=== PATIENT | male | born 1970 | race Caucasian/White ===

== ENCOUNTER 2017-01-02 12:34 | Emergency (ER) | payer MEDICAID ==
--- NOTE | 2017-01-02 13:13 | Emergency Department Record ---
History of Present Illness - General Chief Complaint: Laceration(s) Stated Complaint: LACERATION ON RIGHT LEG Time Seen by Provider: 01/02/17 13:02 Source: Patient Mode of Arrival: Ambulatory Limitations: No limitations - History of Present Illness Initial Commments: pt scratched his leg 8 days ago. he has been putting abx ointment on it and soaking it but he is concerned beause there is some redness. he states it does look better then yesterday. Onset/Timin -: Days(s) Extremity Location: Right: Lower leg Place: Work Context: Accidental Associated Symptoms: None Treatments Prior to Arrival: Other Treatment Prior to Arrival Comment:: Cleaning - [place] Com[place] Scale Eye Response: (4) Open spontaneously Motor Response: (6) Obeys commands - Related Data Home Medications Medication Instructions Recorded Confirmed Last Taken Hydrocodone/Acetaminophen 1 tab PO TID 01/04/14 01/02/17 01/02/17 [Hydrocodon-Acetaminoph 7.5-325] Bupropion HCl [Bupropion HCl Sr] 450 mg PO DAILY 09/05/14 01/02/17 01/02/17 Multivitamin [Multi-Vitamin Daily] 1 tab PO DAILY 01/30/15 01/02/17 01/02/17 Alprazolam [Xanax] 1 mg PO TID PRN 07/05/15 01/02/17 01/02/17 Previous Rx's Medication Instructions Recorded Albuterol Sulfate [Proair Hfa] 1 - 2 puff IH .EVERY 4-6 HOURS PRN 03/07/15 #1 inhaler Cephalexin [Keflex] 250 mg PO QID #30 capsule 01/02/17 Allergies Allergy/AdvReac Type Severity Reaction Status Date / Time iodine [IODINE] Allergy Intermediate PT UNSURE Verified 01/02/17 12:48 OF REACTION Travel Screening - Travel/Exposure Within Last 30 Days Have you traveled within the last 30 days?: No - Travel/Exposure Within Last Year Have you traveled outside the [place] in the last year?: No - Additonal Travel Details Have you been exposed to anyone with a communicable illness?: No - Travel Symptoms Symptom Screening: None Review of Systems Reviewed: No additional complaints except as noted below Constitutional: Reports: As per HPI. Denies: Chills, Fever, Malaise, Night sweats, Weakness, Weight change Eyes: Reports: As per HPI. Denies: Eye discharge, Eye pain, Photophobia, Vision change ENT: Reports: As per HPI. Denies: Congestion, Dental pain, Ear pain, Epistaxis , Hearing loss, Throat pain Respiratory: Reports: As per HPI. Denies: Cough, Dyspnea, Hemoptysis, Stridor, Wheezes Cardiovascular: Reports: As per HPI. Denies: Arrhythmia, Chest pain, Dyspnea on exertion, Edema, Murmurs, Orthopnea, Palpitations, Paroxysmal nocturnal dyspnea, Rheumatic Fever, Syncope Endocrine: Reports: As per HPI. Denies: Fatigue, Heat or cold intolerance, Polydipsia, Polyuria Gastrointestinal: Reports: As per HPI. Denies: Abdominal pain, Constipation, Diarrhea, Hematemesis, Hematochezia, Melena, Nausea, Vomiting Genitourinary: Reports: As per HPI. Denies: Dysuria, Frequency, Hematuria, Incontinence, Retention, Testicular pain, Testicular mass, Urgency Musculoskeletal: Reports: As per HPI. Denies: Arthralgia, Back pain, Gout, Joint swelling, Myalgia, Neck pain Skin: Reports: As per HPI. Denies: Bruising, Change in color, Change in hair/ nails, Lesions, Pruritus, Rash Neurological: Reports: As per HPI. Denies: Abnormal gait, Confusion, Headache, Numbness, Paresthesias, Seizure, Tingling, Tremors, Vertigo, Weakness Psychiatric: Reports: As per HPI. Denies: Anxiety, Auditory hallucinations, Depression, Homicidal thoughts, Suicidal thoughts, Visual hallucinations Hematological/Lymphatic: Reports: As per HPI. Denies: Anemia, Blood Clots, Easy bleeding, Easy bruising, Swollen glands Past Medical History - SOCIAL HISTORY Smoking Status: Current every day smoker Alcohol Use: None Drug Use: None - RESPIRATORY Hx Respiratory Disorders: No - CARDIOVASCULAR Hx Cardio Disorders: No - NEURO Hx Neuro Disorders: No - GI Hx GI Disorders: No - Hx Genitourinary Disorders: No - ENDOCRINE Hx Endocrine Disorders: No - MUSCULOSKELETAL Hx Musculoskeletal Disorders: Yes Hx Back Injury: Yes - PSYCH Hx Psych Problems: Yes Hx Depression: Yes - HEMATOLOGY/ONCOLOGY Hx Hematology/Oncology Disorders: No Family Medical History Any Significant Family History?: No Physical Exam - General General Appearance: Alert, Oriented x3, Cooperative, No acute distress - Head Head exam: Normal inspection - Eye Eye exam: Normal appearance, PERRL, EOMI Pupils: Normal accommodation - ENT ENT exam: Normal exam, Mucous membranes moist, Normal external ear exam, Normal orophraynx Ear exam: Normal external inspection. negative: External canal tenderness Nasal Exam: Normal inspection. negative: Discharge, Sinus tenderness Mouth exam: Normal external inspection, Tongue normal Teeth exam: Normal inspection. negative: Dental caries Throat exam: Normal inspection. negative: Tonsillar erythema, Tonsillar exudate - Neck Neck exam: Normal inspection, Full ROM. negative: Tenderness - Respiratory Respiratory exam: Normal lung sounds bilaterally. negative: Respiratory distress - Cardiovascular Cardiovascular Exam: Regular rate, Normal rhythm, Normal heart sounds - GI/Abdominal GI/Abdominal exam: Soft, Normal bowel sounds. negative: Tenderness - Rectal Rectal exam: Deferred - exam: Deferred - Extremities Extremities exam: Normal inspection, Full ROM, Normal capillary refill, Tenderness Image of Full Body: 1 - superficial laceration w slight erythema - Back Back exam: Reports: Normal inspection, Full ROM. Denies: Muscle spasm, Rash noted, Tenderness - Neurological Neurological exam: Alert, CN II-XII intact, Normal gait, Oriented X3 - Psychiatric Psychiatric exam: Normal affect, Normal mood - Skin Skin exam: Dry, Intact, Normal color, Warm Course Vital Signs 01/02/17 12:50 Temperature 98 F Pulse Rate 74 Respiratory 20 Rate Blood Pressure 133/85 Pulse Ox 99 - Reevaluation(s) Reevaluation #1: 01/02/17 13:13 lac does not look infected at this pt though pt is concerned so i will write a rx in case it gets worse. Disposition Disposition: Discharge Clinical Impression: Laceration Disposition: Home, Self-Care Condition: (1) Good Instructions: Laceration (ED) Additional Instructions: follow up with family doctor. return sooner if worse. elevate leg. continue antibiotic ointment. start prescription only if leg is worse with more redness. Prescriptions: Cephalexin [Keflex] 250 mg PO QID #30 capsule Forms: Patient Portal Access Quality - Quality Measures Quality Measures: N/A - Blood Pressure Screening Blood Pressure Classification: Pre-Hypertensive BP Reading Systolic Measurement: 133 Diastolic Measurement: 85 Screening for High Blood Pressure: < Normal BP, F/U Not Required > [G8783] Normal BP Follow-up Interventions: No follow-up required
== END 2017-01-02 13:26 | disposition home or self-care (01) ==
LOC: ER 12:34
DX: S81.811A Laceration without foreign body, right lower leg, initial encounter (principal); W26.9XXA Contact with unspecified sharp object(s), initial encounter; Y93.H9 Activity, other involving exterior property and land maintenance, building and construction; Y99.0 Civilian activity done for income or pay
CPT/HCPCS: 99282

== ENCOUNTER 2017-02-03 05:20 | Emergency (ER) | payer MEDICAID ==
[2017-02-03] MEDS ORDERED: 0.9 % SODIUM CHLORIDE 1,000 ML BAG IV ONE (05:29)
--- NOTE | 2017-02-03 05:37 | Emergency Department Record ---
History of Present Illness - General Chief Complaint: Abdominal Pain Stated Complaint: LEFT SIDE PAIN Time Seen by Provider: 02/03/17 05:28 Source: Patient Mode of Arrival: Ambulatory Limitations: No limitations - History of Present Illness Initial Comments: 46 yo male presents with left sided abdominal pain that started last Tuesday night. The pain is sharp on the left side. No fevers or vomiting. No diarrhea. No rash. The pain has been constant. No changes in bowel movements or urination. No history of abdominal surgery. No history of renal stones. He has had gastric ulcers in the past but this is in a different location. He has normal appetite. No nausea. PCP Dr Vega Her. Complaint: Abdominal pain Onset/Timin -: Days(s) Location: L Flank, LUQ Radiation: None Migration to: No migration Severity: Mild Consistency: Constant Improves With: Nothing Worsens With: Nothing Associated Symptoms: Denies other symptoms - Related Data Previous Rx's Medication Instructions Recorded Albuterol Sulfate [Proair Hfa] 1 - 2 puff IH .EVERY 4-6 HOURS PRN 03/07/15 #1 inhaler Polyethylene Glycol 3350 [Miralax] 17 gm PO DAILY #10 packet 02/03/17 Allergies Allergy/AdvReac Type Severity Reaction Status Date / Time iodine [IODINE] Allergy Intermediate PT UNSURE Verified 01/02/17 12:48 OF REACTION Travel Screening - Travel/Exposure Within Last 30 Days Have you traveled within the last 30 days?: No - Travel/Exposure Within Last Year Have you traveled outside the [place] in the last year?: No - Additonal Travel Details Have you been exposed to anyone with a communicable illness?: No - Travel Symptoms Symptom Screening: None Review of Systems Constitutional: Denies: Chills, Fever, Malaise, Weakness Eyes: Denies: Eye discharge ENT: Denies: Congestion, Throat pain Respiratory: Denies: Cough, Dyspnea, Hemoptysis, Stridor, Wheezes Cardiovascular: Denies: Chest pain, Palpitations, Syncope Endocrine: Denies: Fatigue Gastrointestinal: Reports: Abdominal pain. Denies: Constipation, Diarrhea, Hematemesis, Hematochezia, Melena, Nausea, Vomiting Genitourinary: Denies: Dysuria, Frequency, Hematuria Musculoskeletal: Reports: Back pain. Denies: Arthralgia, Myalgia, Neck pain Skin: Denies: Bruising, Change in color, Rash Neurological: Denies: Headache, Numbness, Weakness Psychiatric: Denies: Anxiety Hematological/Lymphatic: Denies: Blood Clots, Easy bleeding, Easy bruising, Swollen glands Past Medical History - SOCIAL HISTORY Smoking Status: Current every day smoker Alcohol Use: None Drug Use: None - RESPIRATORY Hx Respiratory Disorders: No - CARDIOVASCULAR Hx Cardio Disorders: No - NEURO Hx Neuro Disorders: No - GI Hx GI Disorders: No - Hx Genitourinary Disorders: No - ENDOCRINE Hx Endocrine Disorders: No - MUSCULOSKELETAL Hx Musculoskeletal Disorders: Yes Hx Back Injury: Yes - PSYCH Hx Psych Problems: Yes Hx Depression: Yes - HEMATOLOGY/ONCOLOGY Hx Hematology/Oncology Disorders: No Family Medical History Any Significant Family History?: No Physical Exam - General General Appearance: Alert, Oriented x3, Cooperative, No acute distress - Head Head exam: Normal inspection - Eye Eye exam: Normal appearance. negative: Conjunctival injection - ENT ENT exam: Normal exam, Mucous membranes moist Ear exam: Normal external inspection Nasal Exam: Normal inspection Mouth exam: Normal external inspection Teeth exam: Normal inspection - Neck Neck exam: Normal inspection, Full ROM. negative: Tenderness - Respiratory Respiratory exam: Normal lung sounds bilaterally. negative: Respiratory distress - Cardiovascular Cardiovascular Exam: Regular rate, Normal rhythm, Normal heart sounds - GI/Abdominal GI/Abdominal exam: Soft, Tenderness, Other (tender left upper quadrant, left flank area). negative: Distended, Guarding, Hernia - Rectal Rectal exam: Deferred - exam: Deferred - Extremities Extremities exam: Normal inspection, Full ROM, Normal capillary refill. negative: Tenderness - Back Back exam: Reports: CVA tenderness (L) - Neurological Neurological exam: Alert, Normal gait, Oriented X3 - Psychiatric Psychiatric exam: Normal affect, Normal mood. negative: Agitated, Anxious - Skin Skin exam: Dry, Intact, Normal color, Warm Course Vital Signs 02/03/17 05:21 Temperature 98.4 F Pulse Rate 82 Respiratory 20 Rate Blood Pressure 124/81 Pulse Ox 100 - Reevaluation(s) Reevaluation #1: 02/03/17 06:06 The labs were reviewed No acute changes on the CBC, CMP or Lipase Reevaluation #2: The [facility] CT scan was read as no acute process detected. 02/03/17 06:34 Reevaluation #3: UA negative for infection He has a history of chronic hematuria 02/03/17 06:49 Medical Decision Making - Lab Data Result diagrams: 02/03/17 05:42 02/03/17 05:42 Disposition Disposition: Discharge Clinical Impression: Abdominal pain Qualifiers: Abdominal location: left upper quadrant Qualified Code(s): R10.12 - Left upper quadrant pain Disposition: Home, Self-Care Condition: (1) Good Instructions: Abdominal Pain (ED) Additional Instructions: Follow up with your doctor this week Return if worse, fever or vomiting Take the Miralax daily until regular bowel movements. Prescriptions: Polyethylene Glycol 3350 [Miralax] 17 gm PO DAILY #10 packet Forms: Patient Portal Access Time of Disposition: 06:42 Quality - Quality Measures Quality Measures: N/A - Blood Pressure Screening Does Patient Have Any of the Following: No Blood Pressure Classification: Pre-Hypertensive BP Reading Systolic Measurement: 124 Diastolic Measurement: 81 Screening for High Blood Pressure: < Pre-Hypertensive BP, F/U Documented > [ G8950] Pre-Hypertensive Follow-up Interventions: Referral to alternative/primary care provider.
[2017-02-03] MEDS ORDERED: ACETAMINOPHEN 1,000 MG/100 ML BTL IVPB ONE (05:39)
[2017-02-03 05:49] LABS: BASO % 0.7 % (0-6); GRAN % 49.2 % (47-80); HEMATOCRIT 40.4 % (42.0-52.0); HEMOGLOBIN 13.8 gm/dl (14.0-18.0); LYMPH % 40.2 % (16-45); MEAN CELL VOLUME 94.8 fl (81-97); MEAN CORPUSCULAR HEMOGLOBIN 32.3 pg (27-33); MEAN CORPUSCULAR HGB CONC 34.2 g/dl (32-36); MEAN PLATELET VOLUME 9.9 fl (7.4-10.4); MONO % 7.9 % (0-9); PLATELET COUNT 168 K/uL (130-400); RED BLOOD COUNT 4.26 M/uL (4.40-5.70); RED CELL DISTRIBUTION WIDTH 13.5 % (11.5-14.5); WHITE BLOOD COUNT W/O DIFF 7.6 K/uL (4.2-12.2)
[2017-02-03 06:00] LABS: ALB/GLOB RATIO 1.2 (1.1-1.8); ALBUMIN 2.9 gm/dL (3.5-5.0); ALKALINE PHOSPHATASE 81 U/L (38-126); ALT/SGPT 44 U/L (21-72); ANION GAP 5.5 (7-16); AST/SGOT 24 U/L (17-59); BILIRUBIN,TOTAL 0.39 mg/dL (0.2-1.3); BLOOD UREA NITROGEN 16 mg/dL (9-20); CARBON DIOXIDE 21.5 mmol/L (22-30); CREATININE 0.8 mg/dL (0.66-1.25); EST GLOMERULAR FILTRATION RATE > 60 ml/min; GLUCOSE,RANDOM 113 mg/dL (70-110); LIPASE 102 U/L (23-300); TOTAL PROTEIN 5.3 gm/dL (6.3-8.2)
[2017-02-03] MEDS ORDERED: KETOROLAC 30 MG/ML VIAL IVP ONE (06:05)
[2017-02-03 06:44] LABS: URINE APPEARANCE CLEAR; URINE BILIRUBIN NEGATIVE (NEGATIVE); URINE BLOOD MODERATE (NEGATIVE); URINE COLOR YELLOW; URINE GLUCOSE (UA) NEGATIVE (NEGATIVE); URINE KETONE NEGATIVE (NEGATIVE); URINE LEUKOCYTE ESTERASE NEGATIVE (NEGATIVE); URINE NITRITE NEGATIVE (NEGATIVE); URINE PROTEIN NEGATIVE (NEGATIVE); URINE UROBILINOGEN 0.2 E.U./dL (0.20 - 1.00)
[2017-02-03 06:48] LABS: URINE BACTERIA NONE SEEN; URINE EPITHELIAL CELLS NONE SEEN (FEW); URINE RBC 21 - 35 (NONE SEEN); URINE WBC NONE SEEN (0-2/hpf)
--- NOTE | 2017-02-03 22:09 | CT SCAN REPORT ---
EXAM: CT SCAN ABDOMEN/PELVIS WO CONTRAST HISTORY: LEFT FLANK PAIN FOR FIVE DAYS. TECHNIQUE: Axial CT scan of the abdomen and pelvis performed without oral or IV contrast. Preliminary report provided by [facility]. COMPARISON: CT abdomen and pelvis 03/03/11. FINDINGS: No calcified gallstones are seen within the gallbladder. No intrarenal calculi identified on either side. No hydronephrosis or hydroureter is seen on either side as well. No ureteral calculus seen on either side and no bladder calculus evident. Evaluation of the bowel and viscera is limited by the lack of oral or IV contrast. Given this limitation, no definite hepatic, splenic, adrenal, pancreatic, or right renal mass identified. There is a low attenuation mass in the left kidney, which was noted on the prior exam as well, and previously measured at 11 mm in size and today measuring about 1.6 cm. This is presumably a renal cyst, although it is incompletely evaluated without IV contrast. As not previously documented as a cyst, follow-up abdomen MRI with attention to the kidneys could be obtained to confirm if not contraindicated. Some mildly prominent retroperitoneal nodes are seen, appearing essentially unchanged from before. Prominent stool throughout the colon raising the possibility of constipation. Appendix visualized and appears of normal caliber with no appendicitis evident. There is some mild infiltrate in the right lower lobe, although this may just represent atelectasis. Some subtle pneumonitis could not be excluded and clinical correlation is suggested. This was not present on the prior CT of 03/03/11. There is also some less prominent atelectasis or infiltrate in the left base today, also new compared with the prior study. No free intraperitoneal air or free intraperitoneal fluid evident. Surgical clips along the scrotum bilaterally, presumably from vasectomy. There is advanced degenerative disc disease at the lumbosacral interspace. There is compression of the superior endplate of the body of T9. This is present on a prior lateral chest x-ray of 08/11/15 as well and seen in a prior thoracic spine CT of 09/15/13. IMPRESSION: 1. NO DEFINITE URINARY TRACT CALCULI OR HYDRONEPHROSIS EVIDENT. 2. APPROXIMATELY 1.6 CM LOW ATTENUATION MASS LEFT KIDNEY, PRESUMABLY A CYST, ALTHOUGH INCOMPLETELY EVALUATED ON THIS NONCONTRAST CT DESCRIBED ABOVE. 3. SOME MILD BIBASILAR ATELECTASIS OR INFILTRATE, RIGHT GREATER THAN LEFT. SUBTLE PNEUMONITIS, PARTICULARLY IN THE RIGHT BASE, COULD NOT BE EXCLUDED. 4. CHRONIC COMPRESSION FRACTURE IN THE LOWER THORACIC SPINE. ADVANCED DEGENERATIVE DISC DISEASE AT THE LUMBOSACRAL INTERSPACE. 5. SURGICAL CLIPS ALONG THE SCROTUM BILATERALLY. 6. REPORT OF THE ATELECTASIS/INFILTRATE IN THE LUNG BASES, RIGHT GREATER THAN LEFT, DISCUSSED BY MYSELF WITH DR. GARCIA AT THE TIME OF DICTATION AT APPROXIMATELY 10:36 A.M. ON 02/03/17. JOB NUMBER: [id number] MTDD
== END 2017-02-03 06:58 | disposition home or self-care (01) ==
LOC: ER 05:20
DX: R10.12 Left upper quadrant pain (principal)
CPT/HCPCS: 99284 ×2; 96374; 96375; 83690; 85025; 80053; 81001; 74176; J1885; J7030

== ENCOUNTER 2017-02-05 17:18 | Emergency (ER) | payer MEDICAID ==
[2017-02-05] MEDS ORDERED: 0.9 % SODIUM CHLORIDE 1,000 ML BAG IV ONE (17:39)
--- NOTE | 2017-02-05 17:49 | Emergency Department Record ---
History of Present Illness - General Chief Complaint: Abdominal Pain Stated Complaint: ADB PAIN/HERE 02/03 Time Seen by Provider: 02/05/17 17:32 Source: Patient Mode of Arrival: Ambulatory Limitations: No limitations - History of Present Illness Initial Comments: pt has been having l abd pain for a week. he was seen 2 days ago and had a ct without contrast which showed basilar infiltrates which werent originally seen by night radiologist. pt has no n/v/c. he has constipation and has been drinking miralax without success. his pain is increasing. MD Complaint: Abdominal pain Onset/Timin -: Days(s) Location: LLQ Radiation: L flank Severity: Mild Quality: Aching Consistency: Constant Improves With: Nothing Worsens With: Nothing Associated Symptoms: Denies other symptoms - Related Data Previous Rx's Medication Instructions Recorded Albuterol Sulfate [Proair Hfa] 1 - 2 puff IH .EVERY 4-6 HOURS PRN 03/07/15 #1 inhaler Polyethylene Glycol 3350 [Miralax] 17 gm PO DAILY #10 packet 02/03/17 Allergies Allergy/AdvReac Type Severity Reaction Status Date / Time iodine [IODINE] Allergy Intermediate PT UNSURE Verified 01/02/17 12:48 OF REACTION Travel Screening - Travel/Exposure Within Last 30 Days Have you traveled within the last 30 days?: No Review of Systems Reviewed: No additional complaints except as noted below Constitutional: Reports: As per HPI. Denies: Chills, Fever, Malaise, Night sweats, Weakness, Weight change Eyes: Reports: As per HPI. Denies: Eye discharge, Eye pain, Photophobia, Vision change ENT: Reports: As per HPI. Denies: Congestion, Dental pain, Ear pain, Epistaxis , Hearing loss, Throat pain Respiratory: Reports: As per HPI. Denies: Cough, Dyspnea, Hemoptysis, Stridor, Wheezes Cardiovascular: Reports: As per HPI. Denies: Arrhythmia, Chest pain, Dyspnea on exertion, Edema, Murmurs, Orthopnea, Palpitations, Paroxysmal nocturnal dyspnea, Rheumatic Fever, Syncope Endocrine: Reports: As per HPI. Denies: Fatigue, Heat or cold intolerance, Polydipsia, Polyuria Gastrointestinal: Reports: As per HPI, Abdominal pain, Constipation. Denies: Diarrhea, Hematemesis, Hematochezia, Melena, Nausea, Vomiting Genitourinary: Reports: As per HPI. Denies: Dysuria, Frequency, Hematuria, Incontinence, Retention, Testicular pain, Testicular mass, Urgency Musculoskeletal: Reports: As per HPI. Denies: Arthralgia, Back pain, Gout, Joint swelling, Myalgia, Neck pain Skin: Reports: As per HPI. Denies: Bruising, Change in color, Change in hair/ nails, Lesions, Pruritus, Rash Neurological: Reports: As per HPI. Denies: Abnormal gait, Confusion, Headache, Numbness, Paresthesias, Seizure, Tingling, Tremors, Vertigo, Weakness Psychiatric: Reports: As per HPI. Denies: Anxiety, Auditory hallucinations, Depression, Homicidal thoughts, Suicidal thoughts, Visual hallucinations Hematological/Lymphatic: Reports: As per HPI. Denies: Anemia, Blood Clots, Easy bleeding, Easy bruising, Swollen glands Past Medical History - SOCIAL HISTORY Smoking Status: Current every day smoker Alcohol Use: None Drug Use: None - RESPIRATORY Hx Respiratory Disorders: No - CARDIOVASCULAR Hx Cardio Disorders: No - NEURO Hx Neuro Disorders: No - GI Hx GI Disorders: No - Hx Genitourinary Disorders: No - ENDOCRINE Hx Endocrine Disorders: No - MUSCULOSKELETAL Hx Musculoskeletal Disorders: Yes Hx Back Injury: Yes - PSYCH Hx Psych Problems: Yes Hx Depression: Yes - HEMATOLOGY/ONCOLOGY Hx Hematology/Oncology Disorders: No Family Medical History Any Significant Family History?: No Physical Exam - General General Appearance: Alert, Oriented x3, Cooperative, Mild distress - Head Head exam: Normal inspection - Eye Eye exam: Normal appearance, PERRL, EOMI Pupils: Normal accommodation - ENT ENT exam: Normal exam, Mucous membranes moist, Normal external ear exam, Normal orophraynx Ear exam: Normal external inspection. negative: External canal tenderness Nasal Exam: Normal inspection. negative: Discharge, Sinus tenderness Mouth exam: Normal external inspection, Tongue normal Teeth exam: Normal inspection. negative: Dental caries Throat exam: Normal inspection. negative: Tonsillar erythema, Tonsillar exudate - Neck Neck exam: Normal inspection, Full ROM. negative: Tenderness - Respiratory Respiratory exam: Normal lung sounds bilaterally. negative: Respiratory distress - Cardiovascular Cardiovascular Exam: Regular rate, Normal rhythm, Normal heart sounds - GI/Abdominal GI/Abdominal exam: Soft, Normal bowel sounds, Tenderness - Rectal Rectal exam: Deferred - exam: Deferred - Extremities Extremities exam: Normal inspection, Full ROM, Normal capillary refill. negative: Tenderness - Back Back exam: Reports: Normal inspection, Full ROM. Denies: Muscle spasm, Rash noted, Tenderness - Neurological Neurological exam: Alert, CN II-XII intact, Normal gait, Oriented X3 - Psychiatric Psychiatric exam: Normal affect, Normal mood - Skin Skin exam: Dry, Intact, Normal color, Warm Course Vital Signs 02/05/17 17:36 Temperature 98.6 F Pulse Rate 78 Respiratory 18 Rate Blood Pressure 117/76 Pulse Ox 98 - Reevaluation(s) Reevaluation #1: 02/05/17 18:51 care being assumed by dr felder Medical Decision Making - Lab Data Result diagrams: 02/05/17 17:55 02/05/17 17:55 Disposition Forms: Patient Portal Access Quality - Quality Measures Quality Measures: N/A - Blood Pressure Screening Does Patient Have Any of the Following: No Blood Pressure Classification: Normal BP Reading Systolic Measurement: 117 Diastolic Measurement: 76 Screening for High Blood Pressure: < Normal BP, F/U Not Required > [G8783]
[2017-02-05 18:04] LABS: BASO % 0.1 % (0-6); EOS % 1.2 % (0-6); GRAN % 54.2 % (47-80); HEMATOCRIT 44.4 % (42.0-52.0); HEMOGLOBIN 15.3 gm/dl (14.0-18.0); MEAN CELL VOLUME 92.1 fl (81-97); MEAN CORPUSCULAR HEMOGLOBIN 31.7 pg (27-33); MEAN CORPUSCULAR HGB CONC 34.5 g/dl (32-36); MEAN PLATELET VOLUME 9.1 fl (7.4-10.4); MONO % 7.5 % (0-9); PLATELET COUNT 232 K/uL (130-400); RED BLOOD COUNT 4.82 M/uL (4.40-5.70); RED CELL DISTRIBUTION WIDTH 13.3 % (11.5-14.5); WHITE BLOOD COUNT W/O DIFF 6.7 K/uL (4.2-12.2)
[2017-02-05 18:15] LABS: ANION GAP 6.7 (7-16); BLOOD UREA NITROGEN 12 mg/dL (9-20); CARBON DIOXIDE 25.3 mmol/L (22-30); CREATININE 1.1 mg/dL (0.66-1.25); EST GLOMERULAR FILTRATION RATE > 60 ml/min; GLUCOSE,RANDOM 92 mg/dL (70-110); LIPASE 70 U/L (23-300)
[2017-02-05 19:47] LABS: URINE APPEARANCE CLEAR; URINE BILIRUBIN NEGATIVE (NEGATIVE); URINE BLOOD SMALL (NEGATIVE); URINE COLOR YELLOW; URINE GLUCOSE (UA) NEGATIVE (NEGATIVE); URINE KETONE NEGATIVE (NEGATIVE); URINE LEUKOCYTE ESTERASE TRACE (NEGATIVE); URINE NITRITE NEGATIVE (NEGATIVE); URINE PROTEIN NEGATIVE (NEGATIVE); URINE UROBILINOGEN 0.2 E.U./dL (0.20 - 1.00)
[2017-02-05 20:01] LABS: URINE BACTERIA 1+
--- NOTE | 2017-02-05 21:58 | Emergency Department Record ---
History of Present Illness - General Chief Complaint: Abdominal Pain Stated Complaint: ADB PAIN/HERE 02/03 Time Seen by Provider: 02/05/17 17:32 Source: Patient Mode of Arrival: Ambulatory Limitations: No limitations - History of Present Illness Complaint: Abdominal pain Onset/Timin -: Days(s) Location: LLQ Radiation: L flank Severity: Mild Quality: Aching Consistency: Constant Improves With: Nothing Worsens With: Nothing Associated Symptoms: Denies other symptoms - Related Data Previous Rx's Medication Instructions Recorded Albuterol Sulfate [Proair Hfa] 1 - 2 puff IH .EVERY 4-6 HOURS PRN 03/07/15 #1 inhaler Polyethylene Glycol 3350 [Miralax] 17 gm PO DAILY #10 packet 02/03/17 Allergies Allergy/AdvReac Type Severity Reaction Status Date / Time iodine [IODINE] Allergy Intermediate PT UNSURE Verified 01/02/17 12:48 OF REACTION Travel Screening - Travel/Exposure Within Last 30 Days Have you traveled within the last 30 days?: No Review of Systems Constitutional: Reports: As per HPI. Denies: Chills, Fever, Malaise, Night sweats, Weakness, Weight change Eyes: Reports: As per HPI. Denies: Eye discharge, Eye pain, Photophobia, Vision change ENT: Reports: As per HPI. Denies: Congestion, Dental pain, Ear pain, Epistaxis , Hearing loss, Throat pain Respiratory: Reports: As per HPI. Denies: Cough, Dyspnea, Hemoptysis, Stridor, Wheezes Cardiovascular: Reports: As per HPI. Denies: Arrhythmia, Chest pain, Dyspnea on exertion, Edema, Murmurs, Orthopnea, Palpitations, Paroxysmal nocturnal dyspnea, Rheumatic Fever, Syncope Endocrine: Reports: As per HPI. Denies: Fatigue, Heat or cold intolerance, Polydipsia, Polyuria Gastrointestinal: Reports: As per HPI, Abdominal pain, Constipation. Denies: Diarrhea, Hematemesis, Hematochezia, Melena, Nausea, Vomiting Genitourinary: Reports: As per HPI. Denies: Dysuria, Frequency, Hematuria, Incontinence, Retention, Testicular pain, Testicular mass, Urgency Musculoskeletal: Reports: As per HPI. Denies: Arthralgia, Back pain, Gout, Joint swelling, Myalgia, Neck pain Skin: Reports: As per HPI. Denies: Bruising, Change in color, Change in hair/ nails, Lesions, Pruritus, Rash Neurological: Reports: As per HPI. Denies: Abnormal gait, Confusion, Headache, Numbness, Paresthesias, Seizure, Tingling, Tremors, Vertigo, Weakness Psychiatric: Reports: As per HPI. Denies: Anxiety, Auditory hallucinations, Depression, Homicidal thoughts, Suicidal thoughts, Visual hallucinations Hematological/Lymphatic: Reports: As per HPI. Denies: Anemia, Blood Clots, Easy bleeding, Easy bruising, Swollen glands Past Medical History - SOCIAL HISTORY Smoking Status: Current every day smoker Alcohol Use: None Drug Use: None - RESPIRATORY Hx Respiratory Disorders: No - CARDIOVASCULAR Hx Cardio Disorders: No - NEURO Hx Neuro Disorders: No - GI Hx GI Disorders: No - Hx Genitourinary Disorders: No - ENDOCRINE Hx Endocrine Disorders: No - MUSCULOSKELETAL Hx Musculoskeletal Disorders: Yes Hx Back Injury: Yes - PSYCH Hx Psych Problems: Yes Hx Depression: Yes - HEMATOLOGY/ONCOLOGY Hx Hematology/Oncology Disorders: No Family Medical History Any Significant Family History?: No Physical Exam - General Limitations: No limitations Course Vital Signs 02/05/17 02/05/17 02/05/17 17:36 19:11 20:32 Temperature 98.6 F 98.4 F Pulse Rate 78 Pulse Rate [ 70 72 Pulse Ox Probe] Respiratory 18 18 16 Rate Blood Pressure 117/76 Blood Pressure 131/91 135/80 [Left Arm] Pulse Ox 98 97 99 - Reevaluation(s) Reevaluation #1: 02/05/17 21:59 CT Abdomen and Pelvis: No acute process, 1.5 cm renal cyst, aortic lymph nodes Patient was updated on all results demonstrating no acute process. On examination, patient's pain symptoms are specifically located to the left lateral ribs and are focal on examination, no abdominal pain noted on exam. Given the specific focality, symptoms appear more c/w with possible muscle strain or injury to the intercostal region laterally. Patient's labs are grossly unremarkable for an acute process and his CT fails to demonstrate an acute intra-abdominal or lower lung abnormality. Patient appears stable for discharge at this time. Medical Decision Making - Lab Data Result diagrams: 02/05/17 17:55 02/05/17 17:55 Lab Results 02/05/17 02/05/17 02/05/17 Range/Units 17:55 17:55 19:30 WBC 6.7 (4.2-12.2) K/uL RBC 4.82 (4.40-5.70) M/uL Hgb 15.3 (14.0-18.0) gm/dl Hct 44.4 (42.0-52.0) % MCV 92.1 (81-97) fl MCH 31.7 (27-33) pg MCHC 34.5 (32-36) g/dl RDW 13.3 (11.5-14.5) % Plt Count 232 (130-400) K/uL MPV 9.1 (7.4-10.4) fl Gran % 54.2 (47-80) % Lymphocytes % 37.0 (16-45) % Monocytes % 7.5 (0-9) % Eosinophils % 1.2 (0-6) % Basophils % 0.1 (0-6) % Sodium 141 (136-145) mmol/L Potassium 3.9 (3.5-5.1) mmol/L Chloride 109 H (98-107) mmol/L Carbon Dioxide 25.3 (22-30) mmol/L Anion Gap 6.7 L (7-16) BUN 12 (9-20) mg/dL Creatinine 1.1 (0.66-1.25) mg/dL Estimated GFR > 60 ml/min Random Glucose 92 (70-110) mg/dL Calcium 9.7 (8.5-10.1) mg/dL Lipase 70 (23-300) U/L Urine Color Yellow Urine Appearance Clear Urine pH 6.0 (5.0-8.0) Ur Specific [place] 1.010 (1.002-1.030) Urine Protein Negative (NEGATIVE) Urine Glucose (UA) Negative (NEGATIVE) Urine Ketones Negative (NEGATIVE) Urine Blood Small H (NEGATIVE) Urine Nitrite Negative (NEGATIVE) Urine Bilirubin Negative (NEGATIVE) Urine Urobilinogen 0.2 (0.20 - 1.00) E.U./dL Ur Leukocyte Esterase Trace H (NEGATIVE) Urine RBC 7 - 10 (NONE SEEN) Urine WBC 6 - 10 (0-2/hpf) Ur Epithelial Cells 3 - 6 (FEW) Urine Bacteria 1+ Disposition Disposition: Discharge Clinical Impression: Flank pain, acute Disposition: Home, Self-Care Condition: (2) Stable Instructions: Flank Pain (ED) Additional Instructions: Return to ED if your symptoms worsen or if you have any concerns. Ibuprofen as needed for your pain symptoms. Follow-up with your family doctor in 1-3 days as directed. Forms: Patient Portal Access Time of Disposition: 21:58 Quality - Quality Measures Quality Measures: N/A - Blood Pressure Screening Does Patient Have Any of the Following: No Blood Pressure Classification: Normal BP Reading Systolic Measurement: 117 Diastolic Measurement: 76 Screening for High Blood Pressure: < Normal BP, F/U Not Required > [G8783]
--- NOTE | 2017-02-07 00:02 | CT SCAN REPORT ---
EXAM: CT SCAN ABDOMEN/PELVIS WO CONTRAST HISTORY: LEFT-SIDED ABDOMINAL PAIN. TECHNIQUE: CT of the abdomen and pelvis is performed following oral contrast. No intravenous contrast is given. COMPARISON: 02/03/17. FINDINGS: The lung bases are unremarkable. Liver and spleen are unremarkable. No pancreatic mass or inflammatory change. No calcified gallstones. No adrenal lesion seen. There is a 1.5 cm cyst in the left kidney. Kidneys otherwise unremarkable. No aortic aneurysm. There are nonspecific periaortic lymph nodes, similar to the prior study. There are no dilated bowel loops. The appendix is unremarkable. No pelvic mass, abscess, or adenopathy. No free air or free fluid. No fracture or acute osseous abnormality identified. IMPRESSION: 1. NO ACUTE ABDOMINAL OR PELVIC PROCESS IDENTIFIED. 2. THERE ARE A FEW NONSPECIFIC PERIAORTIC LYMPH NODES, SIMILAR TO THE PRIOR STUDY. 3. A 1.5 CM CYST IN THE LEFT KIDNEY. JOB NUMBER: [id number] MTDD
== END 2017-02-05 22:09 | disposition home or self-care (01) ==
LOC: ER 17:18
DX: R10.32 Left lower quadrant pain (principal); R07.81 Pleurodynia
CPT/HCPCS: 74176; 80048; 81001; 83690; 85025; 99284; J7030

== ENCOUNTER 2017-10-23 08:54 | Emergency (ER) | payer MEDICAID ==
[2017-10-23] MEDS ORDERED: 0.9 % SODIUM CHLORIDE 1,000 ML BAG IV ONE (09:21)
[2017-10-23] MEDS ORDERED: ONDANSETRON HCL IV 4 MG/2 ML VIAL IV ONE (09:21)
--- NOTE | 2017-10-23 09:33 | Emergency Department Record ---
History of Present Illness - General Chief complaint: Vomiting Stated complaint: VOMITING Time Seen by Provider: 10/23/17 09:12 Source: Patient, RN notes reviewed Mode of Arrival: Ambulatory - History of Present Illness Initial comments: Cough and congestion started about 5 days ago and vomiting started this am and diarrhea started yesterday. PMH BACK PAIN and uses norco 7.5 mg 2-3 per day. and anxiety and depression. Primary Dr. Johana Carroll PA . Patient is complaining pof abdominal pain MD complaint: Abdominal pain, Diarrhea, Vomiting Onset/Timin -: Hour(s) Description of Diarrhea: Water Associated Abdominal Pain: Yes Radiation: None Associated Symptoms: Fever/chills, Nausea/vomiting - Related Data Previous Rx's Medication Instructions Recorded Ondansetron HCl [Zofran] 4 mg PO Q6HR #10 tablet 10/23/17 Allergies Allergy/AdvReac Type Severity Reaction Status Date / Time iodine [IODINE] Allergy Intermediate PT UNSURE Verified 10/23/17 09:05 OF REACTION Travel Screening - Travel/Exposure Within Last 30 Days Have you traveled within the last 30 days?: No Review of Systems Reviewed: No additional complaints except as noted below Constitutional: Reports: As per HPI. Denies: Chills, Fever, Malaise, Night sweats, Weakness, Weight change Eyes: Reports: As per HPI. Denies: Eye discharge, Eye pain, Photophobia, Vision change ENT: Reports: As per HPI. Denies: Congestion, Dental pain, Ear pain, Epistaxis , Hearing loss, Throat pain Respiratory: Reports: As per HPI, Cough. Denies: Dyspnea, Hemoptysis, Stridor, Wheezes Cardiovascular: Reports: As per HPI. Denies: Arrhythmia, Chest pain, Dyspnea on exertion, Edema, Murmurs, Orthopnea, Palpitations, Paroxysmal nocturnal dyspnea, Rheumatic Fever, Syncope Endocrine: Reports: As per HPI. Denies: Fatigue, Heat or cold intolerance, Polydipsia, Polyuria Gastrointestinal: Reports: As per HPI, Abdominal pain, Diarrhea, Vomiting. Denies: Constipation, Hematemesis, Hematochezia, Melena, Nausea Genitourinary: Reports: As per HPI. Denies: Dysuria, Frequency, Hematuria, Incontinence, Retention, Testicular pain, Testicular mass, Urgency Musculoskeletal: Reports: As per HPI. Denies: Arthralgia, Back pain, Gout, Joint swelling, Myalgia, Neck pain Skin: Reports: As per HPI. Denies: Bruising, Change in color, Change in hair/ nails, Lesions, Pruritus, Rash Neurological: Reports: As per HPI. Denies: Abnormal gait, Confusion, Headache, Numbness, Paresthesias, Seizure, Tingling, Tremors, Vertigo, Weakness Psychiatric: Reports: As per HPI. Denies: Anxiety, Auditory hallucinations, Depression, Homicidal thoughts, Suicidal thoughts, Visual hallucinations Hematological/Lymphatic: Reports: As per HPI. Denies: Anemia, Blood Clots, Easy bleeding, Easy bruising, Swollen glands Past Medical History - SOCIAL HISTORY Smoking Status: Current every day smoker Alcohol Use: None Drug Use: None - RESPIRATORY Hx Respiratory Disorders: No - CARDIOVASCULAR Hx Cardio Disorders: No - NEURO Hx Neuro Disorders: No - GI Hx GI Disorders: No - Hx Genitourinary Disorders: No - ENDOCRINE Hx Endocrine Disorders: No - MUSCULOSKELETAL Hx Musculoskeletal Disorders: Yes Hx Back Injury: Yes - PSYCH Hx Psych Problems: Yes Hx Depression: Yes - HEMATOLOGY/ONCOLOGY Hx Hematology/Oncology Disorders: No Family Medical History Any Significant Family History?: No Physical Exam - General General Appearance: Alert, Oriented x3, Cooperative, No acute distress - Head Head exam: Normal inspection - Eye Eye exam: Normal appearance, PERRL Pupils: Normal accommodation - ENT ENT exam: Normal exam, Mucous membranes moist, Normal external ear exam, Normal orophraynx, TM's normal bilaterally Ear exam: Normal external inspection. negative: External canal tenderness Nasal Exam: Normal inspection. negative: Discharge, Sinus tenderness Mouth exam: Normal external inspection, Tongue normal Teeth exam: Normal inspection. negative: Dental caries Throat exam: Normal inspection. negative: Tonsillar erythema, Tonsillar exudate - Neck Neck exam: Normal inspection, Full ROM. negative: Tenderness - Respiratory Respiratory exam: Normal lung sounds bilaterally. negative: Respiratory distress - Cardiovascular Cardiovascular Exam: Regular rate, Normal rhythm, Normal heart sounds - GI/Abdominal GI/Abdominal exam: Soft, Normal bowel sounds, Tenderness (epigastric area) - Rectal Rectal exam: Deferred - exam: Deferred - Extremities Extremities exam: Normal inspection, Full ROM, Normal capillary refill. negative: Tenderness - Back Back exam: Reports: Normal inspection, Full ROM. Denies: Muscle spasm, Rash noted, Tenderness - Neurological Neurological exam: Alert, Normal gait, Oriented X3, Reflexes normal - Psychiatric Psychiatric exam: Normal affect, Normal mood - Skin Skin exam: Dry, Intact, Normal color, Warm Course Vital Signs 10/23/17 08:59 Temperature 97.6 F Pulse Rate 67 Respiratory 20 Rate Blood Pressure 126/88 Pulse Ox 98 Medical Decision Making - Data Complexity MDM Data: Labs Ordered and/or Reviewed, X-Ray Ordered and/or Reviewed (chest xray neg. abd xray neg) - Lab Data Result diagrams: 10/23/17 09:29 10/23/17 09:29 Disposition Clinical Impression: Vomiting and diarrhea, Gastroenteritis Disposition: Home, Self-Care Condition: (1) Good Instructions: Acute Nausea and Vomiting (ED), Gastroenteritis (ED) Additional Instructions: follow up with primary DrKristopher next week clear liquids for 12 hours and bland foods tomorrow Prescriptions: Ondansetron HCl [Zofran] 4 mg PO Q6HR #10 tablet Forms: Patient Portal Access Time of Disposition: 11:35 Quality - Quality Measures Quality Measures: N/A - Blood Pressure Screening Does Patient Have Any of the Following: No Blood Pressure Classification: Pre-Hypertensive BP Reading Systolic Measurement: 126 Diastolic Measurement: 88 Screening for High Blood Pressure: < Pre-Hypertensive BP, F/U Documented > [ G8950] Pre-Hypertensive Follow-up Interventions: Referral to alternative/primary care provider.
[2017-10-23 09:36] LABS: HEMATOCRIT 47.8 % (42.0-52.0); HEMOGLOBIN 16.3 gm/dl (14.0-18.0); MEAN CELL VOLUME 92.3 fl (81-97); MEAN CORPUSCULAR HEMOGLOBIN 31.5 pg (27-33); MEAN CORPUSCULAR HGB CONC 34.1 g/dl (32-36); MEAN PLATELET VOLUME 9.6 fl (7.4-10.4); PLATELET COUNT 216 K/uL (130-400); RED BLOOD COUNT 5.18 M/uL (4.40-5.70); RED CELL DISTRIBUTION WIDTH 13.9 % (11.5-14.5); WHITE BLOOD COUNT W/O DIFF 10.5 K/uL (4.2-12.2)
[2017-10-23 09:45] LABS: BLOOD UREA NITROGEN 19 mg/dL (6-20); CREATININE 1.1 mg/dL (0.7-1.2); EST GLOMERULAR FILTRATION RATE > 60 mL/min
[2017-10-23] MEDS ORDERED: HYDROMORPHONE HCL 2 MG/ML VIAL IVP ONE (09:45)
[2017-10-23 09:46] LABS: TOTAL PROTEIN 7.2 g/dL (6.6-8.7)
[2017-10-23 09:48] LABS: GLUCOSE,RANDOM 143 mg/dL (74-109)
[2017-10-23 09:50] LABS: ALBUMIN 4.1 g/dL (4.0-5.0); ALT/SGPT 26 U/L (<41); AST/SGOT 25 U/L (10.0-50.0)
[2017-10-23 09:51] LABS: ALKALINE PHOSPHATASE 103 U/L (40-129); BILIRUBIN,DIRECT < 0.2 mg/dL (0-0.3); LIPASE 48 U/L (13-60)
[2017-10-23 09:52] LABS: PLATELET ESTIMATE NORMAL (NORMAL)
[2017-10-23] MEDS ORDERED: PROMETHAZINE HCL 25 MG in 0.9 % SODIUM CHLORIDE 100ML 100 ML IVPB ONE (09:54)
--- NOTE | 2017-10-25 13:15 | RADIOLOGY REPORT ---
EXAM: ABDOMEN, TWO VIEWS HISTORY: PAIN. TECHNIQUE: Supine and erect views of the abdomen were obtained. Comparison: Prior abdominal series 12/19/10. FINDINGS: Nonspecific bowel gas pattern. Moderate stool throughout the colon. No free air. Nondilated air filled loops of large and small bowel are present. IMPRESSION: NONSPECIFIC BOWEL GAS PATTERN. MODERATE STOOL IN THE COLON. NO FREE AIR. JOB NUMBER: [id number] MTDD
--- NOTE | 2017-10-25 13:17 | RADIOLOGY REPORT ---
EXAM: CHEST, TWO VIEWS HISTORY: CHEST PAIN. TECHNIQUE: Frontal and lateral views of the chest were obtained. Comparison: Prior chest 08/11/15. FINDINGS: The heart size is normal. Mild elevation of the right hemidiaphragm. Underlying COPD. The lungs are clear. No pneumothorax. IMPRESSION: COPD. THE LUNGS ARE CLEAR. JOB NUMBER: [id number] MTDD
== END 2017-10-23 11:44 | disposition home or self-care (01) ==
LOC: ER 08:54
DX: K52.9 Noninfective gastroenteritis and colitis, unspecified (principal); R11.2 Nausea with vomiting, unspecified; R07.9 Chest pain, unspecified; F17.210 Nicotine dependence, cigarettes, uncomplicated
CPT/HCPCS: 99284 ×2; 96365; 96375; 83690; 80076; 80048; 85027; 74019; 71046; J2405; J1170; J2550; J7030

== ENCOUNTER 2017-10-25 12:17 | Emergency (ER) | payer MEDICAID ==
[2017-10-25] MEDS ORDERED: KETOROLAC 30 MG/ML VIAL IVP ONE (13:14)
[2017-10-25] MEDS ORDERED: PROMETHAZINE HCL 25 MG/ML VIAL IV ONE (13:14)
[2017-10-25] MEDS ORDERED: 0.9 % SODIUM CHLORIDE 1,000 ML BAG IV ONE (13:14)
[2017-10-25 13:24] LABS: BASO % 0.2 % (0-6); EOS % 0.3 % (0-6); GRAN % 78.3 % (47-80); HEMATOCRIT 49.4 % (42.0-52.0); HEMOGLOBIN 16.7 gm/dl (14.0-18.0); LYMPH % 17.3 % (16-45); MEAN CELL VOLUME 92.3 fl (81-97); MEAN CORPUSCULAR HEMOGLOBIN 31.2 pg (27-33); MEAN CORPUSCULAR HGB CONC 33.8 g/dl (32-36); MEAN PLATELET VOLUME 9.9 fl (7.4-10.4); MONO % 3.9 % (0-9); PLATELET COUNT 240 K/uL (130-400); RED BLOOD COUNT 5.35 M/uL (4.40-5.70); RED CELL DISTRIBUTION WIDTH 13.7 % (11.5-14.5); WHITE BLOOD COUNT W/O DIFF 9.2 K/uL (4.2-12.2)
[2017-10-25 13:37] LABS: BLOOD UREA NITROGEN 16 mg/dL (6-20); CREATININE 1.1 mg/dL (0.7-1.2); EST GLOMERULAR FILTRATION RATE > 60 mL/min; TOTAL PROTEIN 7.7 g/dL (6.6-8.7)
--- NOTE | 2017-10-25 13:37 | Emergency Department Record ---
History of Present Illness - General Chief complaint: Vomiting Stated complaint: VOMITING Time Seen by Provider: 10/25/17 12:49 Source: Patient Mode of Arrival: Ambulatory Limitations: No limitations - History of Present Illness Initial comments: pt c/o intractable vomiting, and ap. he did have diarrhea but none for a few days.heis ap is epigastric. he denies exposures he was here 2 days ago for the same MD complaint: Abdominal pain, Nausea, Vomiting Onset/Timin -: Days(s) Description of Vomiting: Bilious Associated Abdominal Pain: Yes Location: Diffuse Severity scale (1-10): >10 Quality: Aching Consistency: Constant Improves with: None Worsens with: None Associated Symptoms: Nausea/vomiting - Related Data Previous Rx's Medication Instructions Recorded Ondansetron HCl [Zofran] 4 mg PO Q6HR #10 tablet 10/23/17 Promethazine HCl [Phenergan] 25 mg RC Q12HR #7 supp.rect 10/25/17 Allergies Allergy/AdvReac Type Severity Reaction Status Date / Time iodine [IODINE] Allergy Intermediate PT UNSURE Verified 10/25/17 12:46 OF REACTION Travel Screening - Travel/Exposure Within Last 30 Days Have you traveled within the last 30 days?: No Review of Systems Reviewed: No additional complaints except as noted below Constitutional: Reports: As per HPI. Denies: Chills, Fever, Malaise, Night sweats, Weakness, Weight change Eyes: Reports: As per HPI. Denies: Eye discharge, Eye pain, Photophobia, Vision change ENT: Reports: As per HPI. Denies: Congestion, Dental pain, Ear pain, Epistaxis , Hearing loss, Throat pain Respiratory: Reports: As per HPI. Denies: Cough, Dyspnea, Hemoptysis, Stridor, Wheezes Cardiovascular: Reports: As per HPI. Denies: Arrhythmia, Chest pain, Dyspnea on exertion, Edema, Murmurs, Orthopnea, Palpitations, Paroxysmal nocturnal dyspnea, Rheumatic Fever, Syncope Endocrine: Reports: As per HPI. Denies: Fatigue, Heat or cold intolerance, Polydipsia, Polyuria Gastrointestinal: Reports: As per HPI, Abdominal pain, Nausea, Vomiting. Denies : Constipation, Diarrhea, Hematemesis, Hematochezia, Melena Genitourinary: Reports: As per HPI. Denies: Dysuria, Frequency, Hematuria, Incontinence, Retention, Testicular pain, Testicular mass, Urgency Musculoskeletal: Reports: As per HPI. Denies: Arthralgia, Back pain, Gout, Joint swelling, Myalgia, Neck pain Skin: Reports: As per HPI. Denies: Bruising, Change in color, Change in hair/ nails, Lesions, Pruritus, Rash Neurological: Reports: As per HPI. Denies: Abnormal gait, Confusion, Headache, Numbness, Paresthesias, Seizure, Tingling, Tremors, Vertigo, Weakness Psychiatric: Reports: As per HPI. Denies: Anxiety, Auditory hallucinations, Depression, Homicidal thoughts, Suicidal thoughts, Visual hallucinations Hematological/Lymphatic: Reports: As per HPI. Denies: Anemia, Blood Clots, Easy bleeding, Easy bruising, Swollen glands Past Medical History - SOCIAL HISTORY Smoking Status: Current every day smoker Alcohol Use: None Drug Use: None - RESPIRATORY Hx Respiratory Disorders: No - CARDIOVASCULAR Hx Cardio Disorders: No - NEURO Hx Neuro Disorders: No - GI Hx GI Disorders: No - Hx Genitourinary Disorders: No - ENDOCRINE Hx Endocrine Disorders: No - MUSCULOSKELETAL Hx Musculoskeletal Disorders: Yes Hx Back Injury: Yes - PSYCH Hx Psych Problems: Yes Hx Depression: Yes - HEMATOLOGY/ONCOLOGY Hx Hematology/Oncology Disorders: No Family Medical History Any Significant Family History?: No Physical Exam - General General Appearance: Alert, Oriented x3, Cooperative, Mild distress - Head Head exam: Normal inspection - Eye Eye exam: Normal appearance, PERRL, EOMI Pupils: Normal accommodation - ENT ENT exam: Normal exam, Mucous membranes moist, Normal external ear exam, Normal orophraynx Ear exam: Normal external inspection. negative: External canal tenderness Nasal Exam: Normal inspection. negative: Discharge, Sinus tenderness Mouth exam: Normal external inspection, Tongue normal Teeth exam: Normal inspection. negative: Dental caries Throat exam: Normal inspection. negative: Tonsillar erythema, Tonsillar exudate - Neck Neck exam: Normal inspection, Full ROM. negative: Tenderness - Respiratory Respiratory exam: Normal lung sounds bilaterally. negative: Respiratory distress - Cardiovascular Cardiovascular Exam: Regular rate, Normal rhythm, Normal heart sounds - GI/Abdominal GI/Abdominal exam: Soft, Normal bowel sounds, Tenderness (epigastric) - Rectal Rectal exam: Deferred - exam: Deferred - Extremities Extremities exam: Normal inspection, Full ROM, Normal capillary refill. negative: Tenderness - Back Back exam: Reports: Normal inspection, Full ROM. Denies: Muscle spasm, Rash noted, Tenderness - Neurological Neurological exam: Alert, CN II-XII intact, Normal gait, Oriented X3 - Psychiatric Psychiatric exam: Normal affect, Normal mood - Skin Skin exam: Dry, Intact, Normal color, Warm Course Vital Signs 10/25/17 12:42 Temperature 98.7 F Pulse Rate 60 Respiratory 20 Rate Blood Pressure 134/84 Pulse Ox 96 Medical Decision Making - Lab Data Result diagrams: 10/25/17 12:45 10/25/17 12:45 Lab Results 10/25/17 Range/Units 12:45 WBC 9.2 (4.2-12.2) K/uL RBC 5.35 (4.40-5.70) M/uL Hgb 16.7 (14.0-18.0) gm/dl Hct 49.4 (42.0-52.0) % MCV 92.3 (81-97) fl MCH 31.2 (27-33) pg MCHC 33.8 (32-36) g/dl RDW 13.7 (11.5-14.5) % Plt Count 240 (130-400) K/uL MPV 9.9 (7.4-10.4) fl Gran % 78.3 (47-80) % Lymphocytes % 17.3 (16-45) % Monocytes % 3.9 (0-9) % Eosinophils % 0.3 (0-6) % Basophils % 0.2 (0-6) % Disposition Disposition: Discharge Clinical Impression: Vomiting Qualifiers: Vomiting type: bilious vomiting Nausea presence: with nausea Qualified Code(s) : R11.14 - Bilious vomiting Abdominal pain Qualifiers: Abdominal location: epigastric Qualified Code(s): R10.13 - Epigastric pain Hematuria Qualifiers: Hematuria type: other microscopic Qualified Code(s): R31.29 - Other microscopic hematuria; R31.2 - Other microscopic hematuria Disposition: Home, Self-Care Condition: (1) Good Instructions: Acute Nausea and Vomiting (ED), Abdominal Pain (ED) Additional Instructions: follow up with family doctor. return sooner if worse. follow up with urologist. Prescriptions: Promethazine HCl [Phenergan] 25 mg RC Q12HR #7 supp.rect Referrals: ANGELA MARTINEZ M.D. [MEDICAL DOCTOR] - [facility] [Provider Group] Forms: Patient Portal Access Quality - Quality Measures Quality Measures: N/A - Blood Pressure Screening Does Patient Have Any of the Following: No Blood Pressure Classification: Pre-Hypertensive BP Reading Systolic Measurement: 134 Diastolic Measurement: 84 Screening for High Blood Pressure: < Pre-Hypertensive BP, F/U Documented > [ G8950] Pre-Hypertensive Follow-up Interventions: Follow-up with rescreen every year.
[2017-10-25 13:39] LABS: GLUCOSE,RANDOM 110 mg/dL (74-109)
[2017-10-25 13:42] LABS: ALBUMIN 4.4 g/dL (4.0-5.0); ALKALINE PHOSPHATASE 108 U/L (40-129); ALT/SGPT 33 U/L (<41); AST/SGOT 25 U/L (10.0-50.0); LIPASE 30 U/L (13-60)
[2017-10-25 13:43] LABS: BILIRUBIN,DIRECT < 0.2 mg/dL (0-0.3)
[2017-10-25 15:36] LABS: AMPHETAMINE SCREEN URINE NOT DETECTED; BARBITURATE SCREEN URINE NOT DETECTED; BENZODIAZEPINE SCREEN URINE DETECTED; COCAINE SCREEN URINE NOT DETECTED; METHADONE SCREEN URINE NOT DETECTED; METHAMPHETAMINE SCREEN NOT DETECTED; OPIATE SCREEN URINE NOT DETECTED; OXYCODONE SCREEN URINE NOT DETECTED; PHENCYCLIDINE SCREEN URINE NOT DETECTED; PROPOXYPHENE SCREEN URINE NOT DETECTED; THC SCREEN URINE NOT DETECTED; TRICYCLIC ANTIDEPRESSANT SCRN NOT DETECTED
[2017-10-25 15:50] LABS: URINE APPEARANCE CLEAR; URINE BILIRUBIN SMALL (NEGATIVE); URINE COLOR ORANGE; URINE GLUCOSE (UA) NEGATIVE (NEGATIVE); URINE KETONE 80 mg/dL (NEGATIVE)
[2017-10-25 15:51] LABS: URINE BLOOD LARGE (NEGATIVE); URINE LEUKOCYTE ESTERASE NEGATIVE (NEGATIVE); URINE NITRITE NEGATIVE (NEGATIVE)
[2017-10-25 15:52] LABS: URINE EPITHELIAL CELLS 0 - 2 (FEW); URINE MUCUS MODERATE; URINE RBC >50 (NONE SEEN); URINE WBC 0 - 2 (0-2/hpf)
--- NOTE | 2017-10-27 08:09 | CT SCAN REPORT ---
EXAM: CT OF THE ABDOMEN AND PELVIS WITHOUT CONTRAST HISTORY: NAUSEA AND VOMITING. TECHNIQUE: CT of the abdomen and pelvis was performed without oral or IV contrast. This limits evaluation of bowel and solid visceral organs. Comparison: Prior CT from 02/05/17. FINDINGS: Limited evaluation of the lung bases is unremarkable. The osseous structures are grossly intact. Limited evaluation of the liver, spleen, adrenal glands, pancreas, and kidneys is unremarkable. Left renal cyst is suggested. The gallbladder is present. Negative for urinary tract calculus or hydronephrosis. There is a large amount of stool in the colon. No gross evidence for bowel obstruction. Normal appendix. No free air or free fluid. There is a nonspecific cystic area in the right hemipelvis which likely relates to adjacent fluid filled loops of small bowel. No surrounding inflammatory change. IMPRESSION: 1. PROBABLE FLUID FILLED LOOPS OF ADJACENT SMALL BOWEL IN THE RIGHT HEMIPELVIS. COMPLEX CYSTIC MASS FELT UNLIKELY. 2. PROBABLE LEFT RENAL CYST. THE REMAINDER UNREMARKABLE. JOB NUMBER: [id number] MTDD
== END 2017-10-25 16:27 | disposition home or self-care (01) ==
LOC: ER 12:17
DX: R11.14 Bilious vomiting (principal); R10.13 Epigastric pain; R19.7 Diarrhea, unspecified; R31.29 Other microscopic hematuria; F17.210 Nicotine dependence, cigarettes, uncomplicated
CPT/HCPCS: 99284 ×2; 96374; 96361; 83690; 85025; 80076; 80048; 81001; 80305; 74176; J1885; J2550; J7030

== ENCOUNTER 2017-12-14 14:22 | Emergency (ER) | payer SELFPAY ==
--- NOTE | 2017-12-14 14:47 | Emergency Department Record ---
History of Present Illness - General Chief complaint: Vomiting Stated complaint: VOMITING X2DAYS Time Seen by Provider: 12/14/17 14:35 Source: Patient, RN notes reviewed Mode of Arrival: Ambulatory - History of Present Illness Initial comments: vomiting and abdominal started 2 days ago and he has had this happen before and he is not sure what causes it. Patient had EGD and colonoscopy at [facility] over 10 years ago Onset/Timin -: Days(s) Severity: Moderate Severity scale (1-10): 10 Quality: Aching, Cramping - Related Data Previous Rx's Medication Instructions Recorded Ondansetron HCl [Zofran] 4 mg PO Q6HR #10 tablet 10/23/17 Promethazine HCl [Phenergan] 25 mg RC Q12HR #7 supp.rect 10/25/17 Promethazine HCl [Phenergan] 25 mg PO Q6HR #14 tablet 12/14/17 Allergies Allergy/AdvReac Type Severity Reaction Status Date / Time iodine [IODINE] Allergy Intermediate PT UNSURE Verified 12/14/17 14:37 OF REACTION Travel Screening - Travel/Exposure Within Last 30 Days Have you traveled within the last 30 days?: No - Travel/Exposure Within Last Year Have you traveled outside the [place] in the last year?: No - Additonal Travel Details Have you been exposed to anyone with a communicable illness?: No - Travel Symptoms Symptom Screening: None Review of Systems Reviewed: No additional complaints except as noted below Constitutional: Reports: As per HPI. Denies: Chills, Fever, Malaise, Night sweats, Weakness, Weight change Eyes: Reports: As per HPI. Denies: Eye discharge, Eye pain, Photophobia, Vision change ENT: Reports: As per HPI. Denies: Congestion, Dental pain, Ear pain, Epistaxis , Hearing loss, Throat pain Respiratory: Reports: As per HPI. Denies: Cough, Dyspnea, Hemoptysis, Stridor, Wheezes Cardiovascular: Reports: As per HPI. Denies: Arrhythmia, Chest pain, Dyspnea on exertion, Edema, Murmurs, Orthopnea, Palpitations, Paroxysmal nocturnal dyspnea, Rheumatic Fever, Syncope Endocrine: Reports: As per HPI. Denies: Fatigue, Heat or cold intolerance, Polydipsia, Polyuria Gastrointestinal: Reports: As per HPI, Abdominal pain, Vomiting. Denies: Constipation, Diarrhea, Hematemesis, Hematochezia, Melena, Nausea Genitourinary: Reports: As per HPI. Denies: Dysuria, Frequency, Hematuria, Incontinence, Retention, Testicular pain, Testicular mass, Urgency Musculoskeletal: Reports: As per HPI. Denies: Arthralgia, Back pain, Gout, Joint swelling, Myalgia, Neck pain Skin: Reports: As per HPI. Denies: Bruising, Change in color, Change in hair/ nails, Lesions, Pruritus, Rash Neurological: Reports: As per HPI. Denies: Abnormal gait, Confusion, Headache, Numbness, Paresthesias, Seizure, Tingling, Tremors, Vertigo, Weakness Psychiatric: Reports: As per HPI. Denies: Anxiety, Auditory hallucinations, Depression, Homicidal thoughts, Suicidal thoughts, Visual hallucinations Hematological/Lymphatic: Reports: As per HPI. Denies: Anemia, Blood Clots, Easy bleeding, Easy bruising, Swollen glands Past Medical History - SOCIAL HISTORY Smoking Status: Current every day smoker Alcohol Use: Rare Drug Use: None - RESPIRATORY Hx Respiratory Disorders: No - CARDIOVASCULAR Hx Cardio Disorders: No - NEURO Hx Neuro Disorders: No - GI Hx Abdominal Pain: Yes (chronic) Hx Ulcer: Yes - Hx Genitourinary Disorders: No - ENDOCRINE Hx Endocrine Disorders: No - MUSCULOSKELETAL Hx Musculoskeletal Disorders: Yes Hx Back Injury: Yes - PSYCH Hx Psych Problems: Yes Hx Depression: Yes - HEMATOLOGY/ONCOLOGY Hx Hematology/Oncology Disorders: No Family Medical History Any Significant Family History?: Yes Physical Exam - General General Appearance: Alert, Oriented x3, Cooperative, No acute distress - Head Head exam: Normal inspection - Eye Eye exam: Normal appearance, PERRL Pupils: Normal accommodation - ENT ENT exam: Normal exam, Mucous membranes moist, Normal external ear exam, Normal orophraynx, TM's normal bilaterally Ear exam: Normal external inspection. negative: External canal tenderness Nasal Exam: Normal inspection. negative: Discharge, Sinus tenderness Mouth exam: Normal external inspection, Tongue normal Teeth exam: Normal inspection. negative: Dental caries Throat exam: Normal inspection. negative: Tonsillar erythema, Tonsillar exudate - Neck Neck exam: Normal inspection, Full ROM. negative: Tenderness - Respiratory Respiratory exam: Normal lung sounds bilaterally. negative: Respiratory distress - Cardiovascular Cardiovascular Exam: Regular rate, Normal rhythm, Normal heart sounds - GI/Abdominal GI/Abdominal exam: Soft, Normal bowel sounds. negative: Tenderness - Rectal Rectal exam: Deferred - exam: Deferred - Extremities Extremities exam: Normal inspection, Full ROM, Normal capillary refill. negative: Tenderness - Back Back exam: Reports: Normal inspection, Full ROM. Denies: Muscle spasm, Rash noted, Tenderness - Neurological Neurological exam: Alert, Normal gait, Oriented X3, Reflexes normal - Psychiatric Psychiatric exam: Normal affect, Normal mood - Skin Skin exam: Dry, Intact, Normal color, Warm Course Vital Signs 12/14/17 14:31 Temperature 98.9 F Pulse Rate 53 L Respiratory 16 Rate Blood Pressure 116/87 Pulse Ox 98 - Reevaluation(s) Reevaluation #1: patient is feeling better 12/14/17 17:35 Medical Decision Making - Data Complexity MDM Data: Labs Ordered and/or Reviewed (wbc 14,000, lipase 68) - Lab Data Result diagrams: 12/14/17 14:35 12/14/17 14:35 Disposition Clinical Impression: Gastroenteritis, Elevated lipase Vomiting Qualifiers: Vomiting type: unspecified Vomiting Intractability: non-intractable Nausea presence: with nausea Qualified Code(s): R11.2 - Nausea with vomiting, unspecified Abdominal pain Qualifiers: Abdominal location: epigastric Qualified Code(s): R10.13 - Epigastric pain Disposition: Home, Self-Care Condition: (1) Good Instructions: Acute Nausea and Vomiting (ED), Gastroenteritis (ED) Additional Instructions: clear liquids for 24 hours follow up with a family Dr scott give family Dr. campo return to ED if worse Prescriptions: Promethazine HCl [Phenergan] 25 mg PO Q6HR #14 tablet Forms: Patient Portal Access Time of Disposition: 17:38 Quality - Quality Measures Quality Measures: N/A - Blood Pressure Screening Does Patient Have Any of the Following: No Blood Pressure Classification: Pre-Hypertensive BP Reading Systolic Measurement: 116 Diastolic Measurement: 87 Screening for High Blood Pressure: < Pre-Hypertensive BP, F/U Documented > [ G8950] Pre-Hypertensive Follow-up Interventions: Referral to alternative/primary care provider.
[2017-12-14 14:57] LABS: HEMATOCRIT 48.3 % (42.0-52.0); HEMOGLOBIN 16.5 gm/dl (14.0-18.0); MEAN CELL VOLUME 91.7 fl (81-97); MEAN CORPUSCULAR HEMOGLOBIN 31.3 pg (27-33); MEAN CORPUSCULAR HGB CONC 34.2 g/dl (32-36); MEAN PLATELET VOLUME 9.5 fl (7.4-10.4); PLATELET COUNT 273 K/uL (130-400); RED BLOOD COUNT 5.27 M/uL (4.40-5.70); RED CELL DISTRIBUTION WIDTH 13.6 % (11.5-14.5)
[2017-12-14] MEDS: 0.9 % SODIUM CHLORIDE 1,000 ML BAG IV ONE ×2 (14:57→16:16)
[2017-12-14] MEDS: PROMETHAZINE HCL 25 MG in 0.9 % SODIUM CHLORIDE 100ML 100 ML IVPB ONE (14:57)
[2017-12-14] MEDS: LORAZEPAM 2 MG/ML VIAL IV ONE (14:57)
[2017-12-14 15:07] LABS: PLATELET ESTIMATE NORMAL (NORMAL)
[2017-12-14 15:10] LABS: BLOOD UREA NITROGEN 19 mg/dL (6-20); EST GLOMERULAR FILTRATION RATE > 60 mL/min
[2017-12-14 15:11] LABS: TOTAL PROTEIN 7.8 g/dL (6.6-8.7)
[2017-12-14 15:13] LABS: GLUCOSE,RANDOM 102 mg/dL (74-109)
[2017-12-14 15:15] LABS: ALBUMIN 4.7 g/dL (4.0-5.0); ALKALINE PHOSPHATASE 100 U/L (40-129); ALT/SGPT 17 U/L (<41); AST/SGOT 18 U/L (10.0-50.0); BILIRUBIN,DIRECT < 0.2 mg/dL (0-0.3); LIPASE 68 U/L (13-60)
== END 2017-12-14 17:54 | disposition home or self-care (01) ==
LOC: ER 14:22
DX: K52.9 Noninfective gastroenteritis and colitis, unspecified (principal); R11.2 Nausea with vomiting, unspecified; R74.8 Abnormal levels of other serum enzymes; R10.13 Epigastric pain; F17.210 Nicotine dependence, cigarettes, uncomplicated
CPT/HCPCS: 80048; 80076; 83690; 85027; 96361; 96365; 96375; 99284; J2550; J7030

== ENCOUNTER 2017-12-17 07:58 | Emergency (ER) | payer SELFPAY ==
[2017-12-17] MEDS ORDERED: 0.9 % SODIUM CHLORIDE 1,000 ML BAG IV ONE ×2 (08:05→08:40)
[2017-12-17] MEDS ORDERED: ONDANSETRON HCL IV 4 MG/2 ML VIAL IV ONE (08:05)
--- NOTE | 2017-12-17 08:15 | Emergency Department Record ---
History of Present Illness - General Chief Complaint: Abdominal Pain Stated Complaint: ABDOMINAL PAIN Time Seen by Provider: 12/17/17 08:02 Source: Patient Mode of Arrival: Wheelchair Limitations: No limitations - History of Present Illness Initial Comments: 47 yo male presents with nausea, vomiting and abdominal pain. The patient was seen in the ED 3 days ago for the same. He was improved but the symptoms returned in the last day. He states this has been a recurrent issue over the last 10 years. He gets frequent episodes of nausea and vomiting. No diarrhea. He is having normal bowel movements. He denies history of abdominal surgery. No blood in the vomit. No fever. He has an ache like pain in the epigastric area. No lower abdominal pain. He denies alcohol. He admits to smoking. He does smoke marijuana. He has had a remote history of pancreatitis. MD Complaint: Abdominal pain, Other (Nausea and vomiting) Onset/Timin -: Hour(s) Location: Diffuse, Epigastric Radiation: None Migration to: Epigastric Severity: Moderate, Severe Severity scale (1-10): 10 Quality: Burning Consistency: Constant Improves With: Nothing Worsens With: Nothing Associated Symptoms: Nausea, Vomiting - Related Data Previous Rx's Medication Instructions Recorded Promethazine HCl [Phenergan] 25 mg PO Q6HR #14 tablet 12/14/17 Ondansetron [Zofran Odt] 4 mg PO Q8H #10 tab.rapdis 12/17/17 Promethazine HCl [Phenergan] 50 mg RC Q8H #10 supp.rect 12/17/17 Allergies Allergy/AdvReac Type Severity Reaction Status Date / Time iodine [IODINE] Allergy Intermediate PT UNSURE Verified 12/14/17 14:37 OF REACTION Travel Screening - Travel/Exposure Within Last 30 Days Have you traveled within the last 30 days?: No Review of Systems Constitutional: Reports: Malaise. Denies: Chills, Fever, Weakness Eyes: Denies: Eye discharge, Eye pain ENT: Denies: Congestion, Throat pain Respiratory: Denies: Cough, Dyspnea, Hemoptysis, Wheezes Cardiovascular: Denies: Chest pain, Syncope Endocrine: Reports: Fatigue. Denies: Polydipsia, Polyuria Gastrointestinal: Reports: As per HPI, Abdominal pain, Nausea, Vomiting. Denies : Constipation, Diarrhea, Hematemesis, Hematochezia, Melena Genitourinary: Denies: Dysuria, Frequency Musculoskeletal: Denies: Arthralgia, Back pain, Joint swelling, Myalgia Skin: Denies: Bruising, Change in color, Rash Neurological: Denies: Headache, Numbness, Weakness Psychiatric: Denies: Anxiety Hematological/Lymphatic: Denies: Easy bleeding, Easy bruising Past Medical History - SOCIAL HISTORY Smoking Status: Current every day smoker Alcohol Use: None Drug Use: None - RESPIRATORY Hx Respiratory Disorders: No - CARDIOVASCULAR Hx Cardio Disorders: No - NEURO Hx Neuro Disorders: No - GI Hx GI Disorders: No Hx Abdominal Pain: Yes (chronic) Hx Ulcer: Yes - Hx Genitourinary Disorders: No - ENDOCRINE Hx Endocrine Disorders: No - MUSCULOSKELETAL Hx Musculoskeletal Disorders: Yes Hx Back Injury: Yes - PSYCH Hx Psych Problems: Yes Hx Depression: Yes - HEMATOLOGY/ONCOLOGY Hx Hematology/Oncology Disorders: No Family Medical History Any Significant Family History?: No Physical Exam - General General Appearance: Alert, Oriented x3, Cooperative, No acute distress Limitations: No limitations - Head Head exam: Atraumatic, Normal inspection - Eye Eye exam: Normal appearance. negative: Conjunctival injection, Scleral icterus - ENT ENT exam: Normal exam, Mucous membranes moist Ear exam: Normal external inspection Nasal Exam: Normal inspection Mouth exam: Normal external inspection - Neck Neck exam: Normal inspection, Full ROM. negative: Tenderness - Respiratory Respiratory exam: Normal lung sounds bilaterally. negative: Respiratory distress - Cardiovascular Cardiovascular Exam: Regular rate, Normal rhythm, Normal heart sounds Peripheral Pulses: 2+: Radial (R), Radial (L) - GI/Abdominal GI/Abdominal exam: Soft, Normal bowel sounds, Tenderness (very mild tenderness in the epigastrium). negative: Distended, Guarding, Rebound, Rigid - Rectal Rectal exam: Deferred - exam: Deferred - Extremities Extremities exam: Normal inspection, Full ROM, Normal capillary refill. negative: Pedal edema, Tenderness - Back Back exam: Denies: CVA tenderness (R), CVA tenderness (L) - Neurological Neurological exam: Alert, Oriented X3 - Psychiatric Psychiatric exam: Normal affect, Normal mood. negative: Agitated, Anxious - Skin Skin exam: Dry, Intact, Normal color, Warm. negative: Cyanosis, Diaphoretic, Erythema, Mottled Course Vital Signs 12/17/17 08:00 Temperature 97.8 F Pulse Rate 55 L Respiratory 16 Rate Blood Pressure 136/80 Pulse Ox 100 - Reevaluation(s) Reevaluation #1: 12/17/17 08:25 The CBC was reviewed. No acute changes 12/17/17 08:40 No acute changes on the CMP or Lipase 12/17/17 08:55 The nausea is improved but still present. Phenergan ordered. No vomiting at this point The labs were reviewed with the patient He reports he has not seen a GI specialist in about 10 years 12/17/17 11:00 EMR was reviewed. UA no infection Positive Cannabis 12/17/17 11:28 The patient has normal labs, normal vitals, very soft abdomen, no clinical signs of infection or obstruction or acute process. He has been hydrated with 3 Liters NS, provided anti-emetics. This has been a recurrent chronic issue. He has had 3 [address] scans in [id number] that have not demonstrated acute process. We discussed DC home with rest, clear liquid diet the next 12-24 hours. We discussed returning in the next 12-24 hours if any vomiting returns, sooner if fever, uncontrolled symptoms or new concerns. His discharge abdominal examination is very benign, soft. 12/17/17 12:23 12/17/17 12:23 Medical Decision Making - Lab Data Result diagrams: 12/17/17 08:05 12/17/17 08:05 Disposition Disposition: Discharge Clinical Impression: Nausea and vomiting Disposition: Home, Self-Care Condition: (2) Stable Instructions: Acute Nausea and Vomiting (ED) Additional Instructions: Return in the next 12 to 24 hours if the vomiting returns Return immediately if you have fever, uncontrolled symptoms Liquid diet the next 2 days. No smoking, alcohol or marijuana Prescriptions: Ondansetron [Zofran Odt] 4 mg PO Q8H #10 tab.rapdis Promethazine HCl [Phenergan] 50 mg RC Q8H #10 supp.rect Forms: Patient Portal Access Time of Disposition: 11:09 Quality - Quality Measures Quality Measures: N/A - Blood Pressure Screening Does Patient Have Any of the Following: No Blood Pressure Classification: Pre-Hypertensive BP Reading Systolic Measurement: 136 Diastolic Measurement: 89 Screening for High Blood Pressure: < Pre-Hypertensive BP, F/U Documented > [ G8950] Pre-Hypertensive Follow-up Interventions: Referral to alternative/primary care provider.
[2017-12-17 08:16] LABS: HEMATOCRIT 45.7 % (42.0-52.0); HEMOGLOBIN 15.8 gm/dl (14.0-18.0); MEAN CELL VOLUME 92.3 fl (81-97); MEAN CORPUSCULAR HEMOGLOBIN 31.9 pg (27-33); MEAN CORPUSCULAR HGB CONC 34.6 g/dl (32-36); PLATELET COUNT 239 K/uL (130-400); RED BLOOD COUNT 4.95 M/uL (4.40-5.70); RED CELL DISTRIBUTION WIDTH 13.4 % (11.5-14.5); WHITE BLOOD COUNT W/O DIFF 7.5 K/uL (4.2-12.2)
[2017-12-17] MEDS ORDERED: PANTOPRAZOLE SODIUM IV 40 MG VIAL IVP ONE (08:16)
[2017-12-17 08:35] LABS: PLATELET ESTIMATE NORMAL (NORMAL)
[2017-12-17 08:36] LABS: BLOOD UREA NITROGEN 18 mg/dL (6-20); GLUCOSE,RANDOM 123 mg/dL (74-109)
[2017-12-17 08:37] LABS: AST/SGOT 14 U/L (10.0-50.0); BILIRUBIN,DIRECT < 0.2 mg/dL (0-0.3); CREATININE 0.9 mg/dL (0.7-1.2); EST GLOMERULAR FILTRATION RATE > 60 mL/min; TOTAL PROTEIN 6.3 g/dL (6.6-8.7)
[2017-12-17 08:38] LABS: ALKALINE PHOSPHATASE 92 U/L (40-129); ALT/SGPT 15 U/L (<41); LIPASE 45 U/L (13-60)
[2017-12-17] MEDS ORDERED: PROMETHAZINE HCL 12.5 MG in 0.9 % SODIUM CHLORIDE 100ML 100 ML IVPB ONE ×2 (08:47→10:24)
[2017-12-17] MEDS ORDERED: 0.9 % SODIUM CHLORIDE 1000ML 1,000 ML IV ONE (09:58)
[2017-12-17 10:51] LABS: AMPHETAMINE SCREEN URINE NOT DETECTED; BARBITURATE SCREEN URINE NOT DETECTED; BENZODIAZEPINE SCREEN URINE NOT DETECTED; COCAINE SCREEN URINE NOT DETECTED; METHADONE SCREEN URINE NOT DETECTED; METHAMPHETAMINE SCREEN NOT DETECTED; OPIATE SCREEN URINE NOT DETECTED; OXYCODONE SCREEN URINE NOT DETECTED; PHENCYCLIDINE SCREEN URINE NOT DETECTED; PROPOXYPHENE SCREEN URINE NOT DETECTED; THC SCREEN URINE DETECTED; TRICYCLIC ANTIDEPRESSANT SCRN NOT DETECTED
[2017-12-17 10:52] LABS: URINE APPEARANCE CLEAR; URINE BILIRUBIN NEGATIVE (NEGATIVE); URINE BLOOD LARGE (NEGATIVE); URINE COLOR YELLOW; URINE GLUCOSE (UA) NEGATIVE (NEGATIVE); URINE KETONE NEGATIVE (NEGATIVE); URINE LEUKOCYTE ESTERASE NEGATIVE (NEGATIVE); URINE NITRITE NEGATIVE (NEGATIVE); URINE PROTEIN NEGATIVE (NEGATIVE); URINE UROBILINOGEN 0.2 E.U./dL (0.20 - 1.00)
[2017-12-17 10:54] LABS: URINE EPITHELIAL CELLS NONE SEEN (FEW); URINE MUCUS MODERATE; URINE RBC 36 - 50 (NONE SEEN)
[2017-12-17] MEDS ORDERED: PROMETHAZINE HCL 25 MG SUPP RC ONE (11:06)
== END 2017-12-17 11:44 | disposition home or self-care (01) ==
LOC: ER 07:58
DX: R11.2 Nausea with vomiting, unspecified (principal); R10.13 Epigastric pain; F17.210 Nicotine dependence, cigarettes, uncomplicated
CPT/HCPCS: 99284 ×2; 96365; 96375; 96361; 83690; 80076; 80048; 81001; 80305; 85027; G0480; J2405; 80320; C9113; J2550; J7030

== ENCOUNTER 2018-05-27 14:06 | Emergency (ER) | payer MEDICAID ==
--- NOTE | 2018-05-27 14:33 | Emergency Department Record ---
History of Present Illness - General Chief complaint: Male Urogenital Problem Stated complaint: UTI Time Seen by Provider: 05/27/18 14:23 Source: Patient Mode of Arrival: Ambulatory - History of Present Illness Initial comments: patient has had dysuria for 10 days and seen at [facility] and given five days of macrobid and still having symptoms. Reviewed the urine from [facility] and the culture just came back today positive for chlamydia. Patient admits to sex with both men and women MD Complaint: Dysuria Onset/Timin -: Days(s) Severity: Moderate Severity scale (1-10): 5 Quality: Aching, Burning Consistency: Constant, Intermittent Improves with: None Worsens with: None Reports: Denies other symptoms - Related Data Sexually active: Yes Previous Rx's Medication Instructions Recorded Doxycycline Monohydrate 100 mg PO BID #28 capsule 05/27/18 Allergies Allergy/AdvReac Type Severity Reaction Status Date / Time iodine [IODINE] Allergy Intermediate PT UNSURE Verified 05/27/18 14:14 OF REACTION Travel Screening - Travel/Exposure Within Last 30 Days Have you traveled within the last 30 days?: No - Travel/Exposure Within Last Year Have you traveled outside the [place] in the last year?: No - Additonal Travel Details Have you been exposed to anyone with a communicable illness?: No - Travel Symptoms Symptom Screening: None Review of Systems Reviewed: No additional complaints except as noted below Constitutional: Reports: As per HPI. Denies: Chills, Fever, Malaise, Night sweats, Weakness, Weight change Eyes: Reports: As per HPI. Denies: Eye discharge, Eye pain, Photophobia, Vision change ENT: Reports: As per HPI. Denies: Congestion, Dental pain, Ear pain, Epistaxis , Hearing loss, Throat pain Respiratory: Reports: As per HPI. Denies: Cough, Dyspnea, Hemoptysis, Stridor, Wheezes Cardiovascular: Reports: As per HPI. Denies: Arrhythmia, Chest pain, Dyspnea on exertion, Edema, Murmurs, Orthopnea, Palpitations, Paroxysmal nocturnal dyspnea, Rheumatic Fever, Syncope Endocrine: Reports: As per HPI. Denies: Fatigue, Heat or cold intolerance, Polydipsia, Polyuria Gastrointestinal: Reports: As per HPI. Denies: Abdominal pain, Constipation, Diarrhea, Hematemesis, Hematochezia, Melena, Nausea, Vomiting Genitourinary: Reports: As per HPI, Dysuria. Denies: Frequency, Hematuria, Incontinence, Retention, Testicular pain, Testicular mass, Urgency Musculoskeletal: Reports: As per HPI. Denies: Arthralgia, Back pain, Gout, Joint swelling, Myalgia, Neck pain Skin: Reports: As per HPI. Denies: Bruising, Change in color, Change in hair/ nails, Lesions, Pruritus, Rash Neurological: Reports: As per HPI. Denies: Abnormal gait, Confusion, Headache, Numbness, Paresthesias, Seizure, Tingling, Tremors, Vertigo, Weakness Psychiatric: Reports: As per HPI. Denies: Anxiety, Auditory hallucinations, Depression, Homicidal thoughts, Suicidal thoughts, Visual hallucinations Hematological/Lymphatic: Reports: As per HPI. Denies: Anemia, Blood Clots, Easy bleeding, Easy bruising, Swollen glands Past Medical History - SOCIAL HISTORY Smoking Status: Current every day smoker Alcohol Use: None Drug Use: None - RESPIRATORY Hx Respiratory Disorders: No - CARDIOVASCULAR Hx Cardio Disorders: No - NEURO Hx Neuro Disorders: No - GI Hx GI Disorders: No Hx Abdominal Pain: Yes (chronic) Hx Ulcer: Yes - Hx Genitourinary Disorders: No - ENDOCRINE Hx Endocrine Disorders: No - MUSCULOSKELETAL Hx Musculoskeletal Disorders: Yes Hx Back Injury: Yes - PSYCH Hx Psych Problems: Yes Hx Depression: Yes - HEMATOLOGY/ONCOLOGY Hx Hematology/Oncology Disorders: No Family Medical History Any Significant Family History?: Yes Physical Exam - General General Appearance: Alert, Oriented x3, Cooperative, No acute distress - Head Head exam: Normal inspection - Eye Eye exam: Normal appearance, PERRL Pupils: Normal accommodation - ENT ENT exam: Normal exam, Mucous membranes moist, Normal external ear exam, Normal orophraynx, TM's normal bilaterally Ear exam: Normal external inspection. negative: External canal tenderness Nasal Exam: Normal inspection. negative: Discharge, Sinus tenderness Mouth exam: Normal external inspection, Tongue normal Teeth exam: Normal inspection. negative: Dental caries Throat exam: Normal inspection. negative: Tonsillar erythema, Tonsillar exudate - Neck Neck exam: Normal inspection, Full ROM. negative: Tenderness - Respiratory Respiratory exam: Normal lung sounds bilaterally. negative: Respiratory distress - Cardiovascular Cardiovascular Exam: Regular rate, Normal rhythm, Normal heart sounds - GI/Abdominal GI/Abdominal exam: Soft, Normal bowel sounds. negative: Tenderness - Rectal Rectal exam: Deferred - exam: Deferred - Extremities Extremities exam: Normal inspection, Full ROM, Normal capillary refill. negative: Tenderness - Back Back exam: Reports: Normal inspection, Full ROM. Denies: Muscle spasm, Rash noted, Tenderness - Neurological Neurological exam: Alert, Normal gait, Oriented X3, Reflexes normal - Psychiatric Psychiatric exam: Normal affect, Normal mood - Skin Skin exam: Dry, Intact, Normal color, Warm Course Vital Signs 05/27/18 14:08 Temperature 98.6 F Pulse Rate 107 H Respiratory 18 Rate Blood Pressure 125/95 Pulse Ox 96 Disposition Clinical Impression: Urethritis, Chlamydia Disposition: Home, Self-Care Condition: (1) Good Instructions: Nonspecific Urethritis in Men (ED) Additional Instructions: follow up with family after antibiotics gone to make sure the infection is gone. Prescriptions: Doxycycline Monohydrate 100 mg PO BID #28 capsule Time of Disposition: 14:43 Quality - Quality Measures Quality Measures: N/A - Blood Pressure Screening Does Patient Have Any of the Following: No Blood Pressure Classification: Hypertensive Reading Systolic Measurement: 125 Diastolic Measurement: 95 Screening for High Blood Pressure: < Pre-Hypertensive BP, F/U Documented > [ G8950] Pre-Hypertensive Follow-up Interventions: Referral to alternative/primary care provider.
== END 2018-05-27 15:12 | disposition home or self-care (01) ==
LOC: ER 14:06
DX: A56.01 Chlamydial cystitis and urethritis (principal); R30.0 Dysuria; F17.210 Nicotine dependence, cigarettes, uncomplicated
CPT/HCPCS: 99282

== ENCOUNTER 2018-11-06 12:49 | Emergency (ER) | payer MEDICAID ==
--- NOTE | 2018-11-06 13:22 | Emergency Department Record ---
History of Present Illness - General Chief complaint: Vomiting Stated complaint: VOMITING,CHILLS Time Seen by Provider: 11/06/18 12:58 Source: Patient Mode of Arrival: Wheelchair Limitations: No limitations - History of Present Illness Initial comments: The patient is here due to the acute onset of nausea, vomiting, and diffuse abdominal pain for the last 8 hours. He has had no fever, diarrhea, or flank pain. The patient has a long hx of similar problems with chronic pain and vomiting but has not had an episode like this for about 9 months. He did have multiple CT scans in 2017 and 2018 for this that were neg. He has had no abdominal surgeries. MD complaint: Abdominal pain, Nausea, Vomiting Onset/Timin -: Hour(s) Description of Vomiting: Bilious Associated Abdominal Pain: Yes Location: Diffuse Radiation: None Severity scale (1-10): 10 Quality: Sharp Consistency: Constant Improves with: None Worsens with: None Associated Symptoms: Nausea/vomiting - Related Data Home Medications Medication Instructions Recorded Confirmed Last Taken Bupropion HCl [Wellbutrin Xl] 150 mg PO DAILY 11/06/18 11/06/18 Unknown Hydrocodone/Acetaminophen 1 each PO Q6H 11/06/18 11/06/18 Unknown [Hydrocodone-Acetamin 5-325 mg] Previous Rx's Medication Instructions Recorded Ondansetron [Zofran Odt] 4 mg SL .Q4-6H PRN #12 tab.rapdis 11/06/18 Allergies Allergy/AdvReac Type Severity Reaction Status Date / Time iodine [IODINE] Allergy Intermediate PT UNSURE Verified 05/27/18 14:14 OF REACTION Travel Screening - Travel/Exposure Within Last 30 Days Have you traveled within the last 30 days?: No Review of Systems Constitutional: Denies: Chills, Fever Eyes: Denies: Eye discharge ENT: Denies: Congestion Respiratory: Denies: Cough, Dyspnea Past Medical History - SOCIAL HISTORY Smoking Status: Current every day smoker - RESPIRATORY Hx Respiratory Disorders: No - CARDIOVASCULAR Hx Cardio Disorders: No - NEURO Hx Neuro Disorders: No - GI Hx GI Disorders: Yes Hx Abdominal Pain: Yes (chronic) Hx Ulcer: Yes - Hx Genitourinary Disorders: No - ENDOCRINE Hx Endocrine Disorders: No - MUSCULOSKELETAL Hx Musculoskeletal Disorders: Yes Hx Back Injury: Yes - PSYCH Hx Psych Problems: Yes Hx Depression: Yes - HEMATOLOGY/ONCOLOGY Hx Hematology/Oncology Disorders: No Family Medical History Any Significant Family History?: No Physical Exam - General General Appearance: Alert, Oriented x3, Cooperative, Mild distress (due to AP.) - Head Head exam: Atraumatic, Normocephalic, Normal inspection - Eye Eye exam: Normal appearance, PERRL - ENT Throat exam: Normal inspection. negative: Tonsillar erythema, Tonsillar exudate - Neck Neck exam: Normal inspection, Full ROM. negative: Tenderness - Respiratory Respiratory exam: Normal lung sounds bilaterally. negative: Respiratory distress - Cardiovascular Cardiovascular Exam: Regular rate, Normal rhythm, Normal heart sounds - GI/Abdominal GI/Abdominal exam: Soft, Tenderness (There is tenderness in all 4 quads mildly but with no guarding or rebound.). negative: Distended, Guarding, Rebound, Rigid - Extremities Extremities exam: Normal inspection, Full ROM, Normal capillary refill. negative: Tenderness - Neurological Neurological exam: Alert. negative: Motor sensory deficit - Psychiatric Psychiatric exam: Anxious. negative: Depressed Course Vital Signs 11/06/18 13:00 Temperature 97.6 F Pulse Rate [ 49 L Pulse Ox Probe] Respiratory 20 Rate Blood Pressure 133/81 [Left Arm] Pulse Ox 100 - Reevaluation(s) Reevaluation #1: The patient is doing a lot better at this time. His nausea is much improved and his AP has resolved. I did explain to him that his evaluation is normal and we are just waiting on a UA. 11/06/18 15:06 Reevaluation #2: The patient now states his nausea is returning and he feels to weak to stand. I did try to get him up walking but he refused. Due to that issue I did recommend a short stay admission for fluids and IV anti-emetics but the patient is refusing. I did explain to him that due to his profound weakness he could go home and fall and injure himself. He could end up with a broken bone, multiple injuries, have a stroke, become disabled and even . The patient understands and accepts the risks and is willing to sign out AMA. He was instructed to return to the ER for any worsening symptoms. Presently the patient does have proper decision making capacity and does understand the risks of refusing. 11/06/18 16:48 Medical Decision Making - Data Complexity MDM Data: Labs Ordered and/or Reviewed, X-Ray Ordered and/or Reviewed - Lab Data Result diagrams: 11/06/18 13:25 11/06/18 13:25 - Radiology Data Radiology results: Report reviewed (Abd CT: neg for any acute changes.) Disposition Disposition: Discharge Clinical Impression: Vomiting Qualifiers: Vomiting type: unspecified Vomiting Intractability: intractable Nausea presence: with nausea Qualified Code(s): R11.2 - Nausea with vomiting, unspecified Disposition: Against Medical Advice Condition: (2) Stable Instructions: Acute Nausea and Vomiting (ED) Additional Instructions: Please continue your regular medicines and please see your family doctor if not better in 2 days. Please return to the ER in the morning for any persistent or worsening symptoms. Please use the Zofran for nausea. Prescriptions: Ondansetron [Zofran Odt] 4 mg SL .Q4-6H PRN #12 tab.rapdis PRN Reason: Nausea Forms: Patient Portal Access Time of Disposition: 16:51 Quality - Quality Measures Quality Measures: N/A - Blood Pressure Screening View Details: Yes Does Patient Have Any of the Following: No Blood Pressure Classification: Pre-Hypertensive BP Reading Systolic Measurement: 125 Diastolic Measurement: 85 Screening for High Blood Pressure: < Pre-Hypertensive BP, F/U Documented > [G8950] Pre-Hypertensive Follow-up Interventions: Referral to alternative/primary care provider.
[2018-11-06] MEDS: PROMETHAZINE HCL 12.5 MG in 0.9 % SODIUM CHLORIDE 100ML 100 ML IVPB ONE (13:24)
[2018-11-06] MEDS: 0.9 % SODIUM CHLORIDE 1,000 ML BAG IV ONE ×2 (13:24→15:01)
[2018-11-06] MEDS: ACETAMINOPHEN 1,000 MG/100 ML BTL IVPB ONE (13:25)
[2018-11-06] MEDS: ONDANSETRON HCL IV 4 MG/2 ML VIAL IV ONE (13:26)
[2018-11-06] MEDS: PANTOPRAZOLE SODIUM IV 40 MG VIAL IVP ONE (13:26)
[2018-11-06 13:36] LABS: HEMATOCRIT 48.5 % (42.0-52.0); HEMOGLOBIN 16.2 gm/dl (14.0-18.0); MEAN CORPUSCULAR HEMOGLOBIN 32.1 pg (27-33); MEAN CORPUSCULAR HGB CONC 33.4 g/dl (32-36); MEAN PLATELET VOLUME 9.3 fl (7.4-10.4); PLATELET COUNT 268 K/uL (130-400); RED BLOOD COUNT 5.05 M/uL (4.40-5.70); RED CELL DISTRIBUTION WIDTH 14.6 % (11.5-14.5); WHITE BLOOD COUNT W/O DIFF 10.5 K/uL (4.2-12.2)
[2018-11-06 13:49] LABS: BLOOD UREA NITROGEN 13 mg/dL (6-20); CREATININE 1.1 mg/dL (0.7-1.2); EST GLOMERULAR FILTRATION RATE > 60 mL/min; LIPASE 24 U/L (13-60); TOTAL PROTEIN 7.2 g/dL (6.6-8.7)
[2018-11-06 13:51] LABS: GLUCOSE,RANDOM 149 mg/dL (74-109)
[2018-11-06 13:54] LABS: ALBUMIN 4.3 g/dL (4.0-5.0); ALKALINE PHOSPHATASE 133 U/L (40-129); ALT/SGPT 22 U/L (<41); AST/SGOT 21 U/L (10.0-50.0)
[2018-11-06 14:02] LABS: BILIRUBIN,DIRECT < 0.2 mg/dL (0-0.3)
[2018-11-06] MEDS: KETOROLAC 30 MG/ML VIAL IVP ONE (14:07)
[2018-11-06 15:58] LABS: URINE APPEARANCE CLEAR; URINE BILIRUBIN NEGATIVE (NEGATIVE); URINE BLOOD LARGE (NEGATIVE); URINE COLOR YELLOW; URINE GLUCOSE (UA) NEGATIVE (NEGATIVE); URINE KETONE 40 mg/dL (NEGATIVE); URINE LEUKOCYTE ESTERASE NEGATIVE (NEGATIVE); URINE NITRITE NEGATIVE (NEGATIVE); URINE PROTEIN NEGATIVE (NEGATIVE); URINE UROBILINOGEN 0.2 E.U./dL (0.20 - 1.00)
[2018-11-06 16:02] LABS: AMPHETAMINE SCREEN URINE NOT DETECTED; BARBITURATE SCREEN URINE NOT DETECTED; BENZODIAZEPINE SCREEN URINE NOT DETECTED; COCAINE SCREEN URINE NOT DETECTED; METHADONE SCREEN URINE NOT DETECTED; METHAMPHETAMINE SCREEN NOT DETECTED; OPIATE SCREEN URINE DETECTED; OXYCODONE SCREEN URINE NOT DETECTED; PHENCYCLIDINE SCREEN URINE NOT DETECTED; PROPOXYPHENE SCREEN URINE NOT DETECTED; THC SCREEN URINE DETECTED; TRICYCLIC ANTIDEPRESSANT SCRN NOT DETECTED
[2018-11-06 16:18] LABS: URINE EPITHELIAL CELLS NONE SEEN (FEW); URINE WBC NONE SEEN (0-2/hpf)
[2018-11-06] MEDS: ONDANSETRON HCL IV 4 MG/2 ML VIAL IVP ONE (16:28)
--- NOTE | 2018-11-08 08:34 | CT SCAN REPORT ---
EXAM: CT SCAN OF THE ABDOMEN AND PELVIS WITHOUT CONTRAST HISTORY: NAUSEA AND VOMITING SINCE 5:00 A.M. THIS MORNING. TECHNIQUE: Standard CT imaging of the abdomen and pelvis was performed without contrast. Comparison: 10/25/17. FINDINGS: The lung bases are clear. The liver, gallbladder, biliary tree, pancreas, spleen, and adrenal glands are normal. A 2 cm cyst is present within the lateral cortex of the left kidney. The kidneys and ureters are otherwise normal. There is no urinary tract calculus or obstructive uropathy. The aorta is normal in caliber. There are scattered nonenlarged retroperitoneal lymph nodes. There is no pathologic lymphadenopathy. The large and small bowel loops including the appendix appear normal. There are no focal inflammatory changes. There is no pneumoperitoneum or ascites. The urinary bladder and prostate gland appear normal. The abdominal wall appears intact. Degenerative changes are present within the lumbosacral spine. IMPRESSION: 1. NO ACUTE INTRAABDOMINAL PATHOLOGY. 2. 2 CM LEFT RENAL CYST. 3. DEGENERATIVE CHANGES WITHIN THE LUMBOSACRAL SPINE. JOB NUMBER: [id number] [facility]
== END 2018-11-06 17:14 | disposition left against medical advice (07) ==
LOC: ER 12:49
DX: R11.2 Nausea with vomiting, unspecified (principal); R53.1 Weakness; F17.210 Nicotine dependence, cigarettes, uncomplicated
CPT/HCPCS: 74176; 80048; 80076; 80305; 81001; 83690; 85027; 96361; 96365; 96375; 99284; C9113; J1885; J2405; J2550; J7030

== ENCOUNTER 2019-06-30 19:08 | Emergency (ER) | payer MEDICAID ==
[2019-06-30] MEDS ORDERED: CEFTRIAXONE 250 MG VIAL IM ONE (19:39)
[2019-06-30] MEDS ORDERED: DOXYCYCLINE HYCLATE 100 MG CAPSULE PO ONE (19:47)
--- NOTE | 2019-06-30 19:47 | Emergency Department Record ---
History of Present Illness - General Chief complaint: Male Urogenital Problem Stated complaint: PAIN Time Seen by Provider: 06/30/19 19:33 Source: Patient Mode of Arrival: Ambulatory Limitations: No limitations - History of Present Illness Initial comments: The patient is here due to dysuria for 3 days. He denies any AP, back pain, fever or vomiting. The patient does have a hx of STD's and was at the [facility] yesterday and had STD testing ordered on his urine. He was not prescribed any medicine at discharge. MD Complaint: Dysuria Onset/Timin -: Days(s) Location: Penis Radiation: None Severity: Mild Severity scale (1-10): 6 Quality: Burning Consistency: Intermittent Improves with: None Worsens with: Urination - Related Data Previous Rx's Medication Instructions Recorded Doxycycline Monohydrate [Mondoxyne 100 mg PO BID 7 Days #14 capsule 06/30/19 Nl] Allergies Allergy/AdvReac Type Severity Reaction Status Date / Time iodine [IODINE] Allergy Intermediate PT UNSURE Verified 06/30/19 19:25 OF REACTION Travel Screening - Travel/Exposure Within Last 30 Days Have you traveled within the last 30 days?: No - Travel/Exposure Within Last Year Have you traveled outside the [place] in the last year?: No - Additonal Travel Details Have you been exposed to anyone with a communicable illness?: No Review of Systems Constitutional: Denies: Chills, Fever Past Medical History - SOCIAL HISTORY Smoking Status: Current every day smoker Alcohol Use: None Drug Use: Heavy Drug Use Detail:: Marijuana - RESPIRATORY Hx Respiratory Disorders: No - CARDIOVASCULAR Hx Cardio Disorders: No - NEURO Hx Neuro Disorders: No - GI Hx GI Disorders: Yes Hx Abdominal Pain: Yes (chronic) Hx Ulcer: Yes - Hx Genitourinary Disorders: No - ENDOCRINE Hx Endocrine Disorders: No - MUSCULOSKELETAL Hx Musculoskeletal Disorders: Yes Hx Back Injury: Yes - PSYCH Hx Psych Problems: Yes Hx Depression: Yes - HEMATOLOGY/ONCOLOGY Hx Hematology/Oncology Disorders: No Family Medical History Any Significant Family History?: No Physical Exam - General General Appearance: Alert, Oriented x3, Cooperative, No acute distress - Head Head exam: Atraumatic - Eye Eye exam: Normal appearance - Neck Neck exam: Normal inspection, Full ROM. negative: Tenderness - Respiratory Respiratory exam: Normal lung sounds bilaterally. negative: Respiratory distress - Cardiovascular Cardiovascular Exam: Regular rate, Normal rhythm, Normal heart sounds - GI/Abdominal GI/Abdominal exam: Soft, Normal bowel sounds. negative: Tenderness - exam: Circumcision, Urethral discharge (There is an obvious urethral discharge present. ) Course Vital Signs 06/30/19 19:20 Temperature 98.4 F Pulse Rate 60 Respiratory 18 Rate Blood Pressure 115/74 Pulse Ox 100 - Reevaluation(s) Reevaluation #1: I did explain to the patient that we will treat him for GC and Chlamydia and he is to see his PCP next week for further testing. 06/30/19 19:53 Disposition Disposition: Discharge Clinical Impression: Urethritis Disposition: Home, Self-Care Condition: (2) Stable Instructions: Nonspecific Urethritis in Men (ED) Additional Instructions: Please take the Doxycycline as directed and please practice safe safe sex going forward. Please see your family doctor for recheck this week and also have further testing for HIV, Hepatitis and Syphylis. Please have your sexual partners follow up with their doctors for STD testing. Prescriptions: Doxycycline Monohydrate [Kyleighdoxyne Nl] 100 mg PO BID 7 Days #14 capsule Forms: Patient Portal Access Time of Disposition: 19:46 Quality - Quality Measures Quality Measures: N/A - Blood Pressure Screening View Details: Yes Does Patient Have Any of the Following: No Blood Pressure Classification: Normal BP Reading Systolic Measurement: 115 Diastolic Measurement: 74 Screening for High Blood Pressure: < Normal BP, F/U Not Required > [G8783]
== END 2019-06-30 20:07 | disposition home or self-care (01) ==
LOC: ER 19:08
DX: N34.2 Other urethritis (principal); R30.0 Dysuria; F17.210 Nicotine dependence, cigarettes, uncomplicated
CPT/HCPCS: 99283 ×2; 96372; J0696